=== PATIENT | male | born 1955 | race Caucasian/White ===

== ENCOUNTER 2019-05-18 02:09 | Inpatient (IN) ==
[2019-05-18 02:34] LABS: ABG Base Excess -5 mEq/L (-2 to 3); ABG HCO3 17 mEq/L (21-27); ABG Oxygen Saturation 94 % (95-98); ABG PCO2 23 mmHg (35-45); ABG PH 7.48 pH Units (7.32-7.45); ABG PO2 63 mmHg (85-104); ABG TCO2 18 mEq/L (20-26)
[2019-05-18] MEDS ORDERED: 0.9 % Sodium Chloride 1,000 ML IVC ONE (02:43)
--- NOTE | 2019-05-18 02:43 | Emergency Department Note ---
Disposition Clinical Impression: Delirium due to general medical condition, Hyponatremia Disposition: Admitted As Inpatient Condition: Serious Referrals: NONE,PCP [Primary Care Provider] - Forms: ED Satisfaction Letter Time of Disposition: 06:07 Altered Mental Status HPI - General Chief Complaint: ED Altered Mental Status Stated Complaint: AMS Time Seen by Provider: 05/18/19 02:26 Source: patient, family, EMS Mode of arrival: EMS Limitations: altered mental status Nursing Notes Reviewed: Yes Vital Signs Reviewed: Yes - History of Present Illness HPI Narrative: 64-year-old male past medical history of dementia and lymphoma on aspirin and Plavix presenting for one day of altered mental status. and grandson at bedside state that patient was recently diagnosed with lymphoma in the chest and abdomen, has been experiencing 3 week of gradually progressive and worsening lower back pain as well as alternation of mental status. Patient today has appeared to be hallucinating, has had altered mental status with lethargy, was noted to be hypoxic to 85% on room air at home. EMS states that nonrebreather mask brought patient up to 100% on oxygen he became alert and oriented that time. Upon presentation to the ED the patient is alert to person only, he is only minimal cooperative to history of present illness/review of systems questioning. Patient admits to lower back pain but states that he has no other concerns or complaints at this time. Specifically patient says he has no headache, chest pain, abdominal pain nausea or vomiting. Concern for intracranial pathology specifically in the setting of recently diagnosed lymphoma we will obtain CT scan of the head as well as ED altered mental status workup to search for infectious etiology versus intracranial or cardiopulmonary pathology. MD complaint: altered mental status Onset (ago): week(s) Timing confirmed by: spouse Consistency of Symptoms: waxing and waning Associated symptoms: Reports: denies other symptoms - Related Data Home Medications Medication Instructions Recorded Confirmed Amlodipine Besylate 10 mg PO DAILY 05/18/19 05/18/19 Aspirin 81 mg PO DAILY 05/18/19 05/18/19 Atenolol [Tenormin] 50 mg PO DAILY 05/18/19 05/18/19 Atorvastatin [Lipitor] 20 mg PO HS 05/18/19 05/18/19 Benzonatate [Tessalon] 100 mg PO TID PRN 05/18/19 05/18/19 Cholecalciferol (Vitamin D3) 2,000 unit PO DAILY 05/18/19 05/18/19 [Vitamin D3] Clopidogrel [Plavix] 75 mg PO DAILY 05/18/19 05/18/19 Cyclobenzaprine [Flexeril] 10 mg PO HS 05/18/19 05/18/19 Lisinopril [Zestril] 40 mg PO BID 05/18/19 05/18/19 Pantoprazole Sodium [Protonix] 20 mg PO DAILY 05/18/19 05/18/19 Tamsulosin HCl [Flomax] 0.4 mg PO DAILY 05/18/19 05/18/19 Umeclidinium Brm/Vilanterol Tr 1 each IH DAILY 05/18/19 05/18/19 [Anoro Ellipta 62.5-25 Mcg INH] cloNIDine HCl [CloNIDine HCl] 0.1 mg PO BID 05/18/19 05/18/19 Allergies Allergy/AdvReac Type Severity Reaction Status Date / Time No Known Allergies Allergy Verified 05/18/19 02:24 Review of Systems: As Per HPI Limitations: ROS unobtainable due to patients medical condition Past Medical History - Past Medical History Medical history: Reports: COPD, hypertension Psychiatric history: Reports: no psych history - Social History Smoking Status: Former smoker Alcohol use: Reports: heavy Drug use: Reports: none Physical Exam Constitutional: Patient has altered mental status, speech is otherwise fluid there are no lateralizing deficits. Neuro: GCS 15, no overt focal neurological deficits Head: Atraumatic, normocephalic Eyes: Pupils equal, round and reactive to light, no scleral icterus, no conjunctival injection Neck: Trachea midline without deviation. Anterior neck is supple without swelling. *Chest: Symmetric chest wall rise *Heart: Cardiac rhythm and rate are regular with S1 and S2 , no S3 or S4 appreciated, no murmurs, gallops, rubs, or clicks. *Lungs: Lungs are clear to auscultation bilaterally, without accessory muscle use or prolonged expiratory phase. No wheezes, rhonchi or stridor appreciated. Abdomen: Abdomen is flat, soft to palpation, normal bowel sounds. No abdominal bruit auscultated. Non-distended, non-rigid, no organomegaly, no ascites appreciated. No pulsatile mass, no tenderness or guarding to palpation in all four quadrants, no rebound Extremities: Normal capillary refill without evidence of pedal edema, joint swelling or erythema. Pulses/motor/sensory intact in all 4 extremities. Psychiatric exam: Patient has altered mental status of unknown origin Integumentary: warm, dry, intact, normal color. No rash, cyanosis, diaphoresis, erythema, or pallor - General Limitations: altered mental status General appearance: alert, obtunded Course Course Narrative: ED altered mental status workup to include CT scan of the head and abdomen, lactic acid, blood cultures, chest x-ray EKG, troponin Treatments: IV fluids final for the management of patient's discomfort and pain. - Reevaluation(s) Reevaluation #1: Patient's sodium was measured at 104 Patient is received 1 L of normal saline We will start maintenance fluid at 125 mL per hour Patient's last sodium check was 116 and march this year. Patient takes 1 g sodium chloride twice a day at home. We will recheck sodium stat Reevaluation #2: Spoke with Dr. Pierce from nephrology regarding correction factor for hyponatremia. Dr. Pierce currently recommends 3% hypertonic saline at a rate of 20 mL/h with every 2 hours sodium checks for a total correction of 6 points in 24 hours. Order repeated back to Dr. Pierce with a closed loop communication was confirmed as accurate. Nephrology consulted and is following Orders were be placed as noted above with care initiated here in the ED. Time: 04:43 Vital Signs Temperature 98.5 F 05/18/19 02:24 Pulse Rate 86 05/18/19 02:24 Respiratory Rate 25 05/18/19 02:24 Blood Pressure 134/68 05/18/19 02:24 O2 Sat by Pulse Oximetry 95 05/18/19 02:24 Temperature 98.5 F 05/18/19 02:24 Pulse Rate 89 05/18/19 06:04 Respiratory Rate 18 05/18/19 06:04 Blood Pressure 131/93 05/18/19 06:04 O2 Sat by Pulse Oximetry 93 05/18/19 06:04 Oxygen Delivery Oxygen Delivery Room Air Altered Mental Status - MDM Narrative Medical decision making narrative: Patient laboratories significant for hyponatremia, imaging concerning for interstitial edema. No significant pathology on EKG evaluation. Patient will be admitted to hospital medicine service further evaluation and management of hyponatremia. Patient's family at bedside verbalized understanding and agreement with this plan. Elabor accepting admission. Patient is hemodynamically stable time of admission. - Lab Data Lab results reviewed: Yes I reviewed the patient's lab results. Result diagrams: 05/18/19 03:50 05/18/19 02:42 Lab Results 05/18/19 05/18/19 05/18/19 Range/Units 02:25 02:42 02:42 WBC (4.3-11.1) K/mcL RBC (4.19-5.50) M/mcL Hgb (12.9-16.9) g/dL Hct (37.5-50.1) % MCV (83.0-100.0) fL MCH (28.0-33.3) pg MCHC (31.6-35.5) g/dL RDW (11.5-14.5) % Plt Count (140-400) K/mcL MPV (9.4-12.4) fL Immature Gran % (0-4) % Seg Neutrophils % % Lymphocytes % % Monocytes % % Eosinophils % % Basophils % % Neutrophils # (1.6-8.9) K/mcL Lymphocytes # (0.6-4.6) K/mcL Monocytes # (0.0-1.3) K/mcL Eosinophils # (0.0-0.6) K/mcL Basophils # (0.0-0.2) K/mcL Immature Plt Fraction (1.1-6.1) % PT 13.3 H (9.4-12.1) Seconds INR 1.2 APTT 31.5 (26.0-36.0) Seconds ABG pH 7.48 H (7.32-7.45) pH Units ABG pCO2 23 L (35-45) mmHg ABG pO2 63 L (85-104) mmHg ABG HCO3 17 L (21-27) mEq/L ABG Total CO2 18 L (20-26) mEq/L ABG O2 Saturation 94 L (95-98) % ABG Base Excess -5 L (-2 to 3) mEq/L O2 Delivery Device Room Air Sodium 104 L* (136-145) mEq/L Potassium 4.3 (3.5-5.1) mEq/L Chloride 73 L (98-107) mEq/L Carbon Dioxide 21 L (23-29) mEq/L BUN 6 L (8-23) mg/dL Creatinine 0.48 L (0.70-1.30) mg/dL Est GFR ( Amer) > 60 (> 60) Est GFR (Non-Af Amer) > 60 (> 60) BUN/Creatinine Ratio 13 (6-26) Glucose 90 (70-105) mg/dL Calculated Osmolality 215 L (280-300) Lactic Acid (0.5-2.2) mmol/L Calcium 9.7 (8.6-10.3) mg/dL Total Bilirubin 1.6 H (0.3-1.0) mg/dL Direct Bilirubin 0.6 H (0.0-0.2) mg/dL Indirect Bilirubin 1.0 (0.0-1.2) mg/dL AST 48 H (13-39) Units/L ALT 40 (7-52) Units/L Alkaline Phosphatase 137 H (34-104) Units/L Ammonia (16-53) mcmol/L Troponin I < 0.03 (< 0.04) ng/mL Serum Total Protein 6.2 L (6.4-8.9) g/dL Albumin 3.5 (3.5-5.7) g/dL Globulin 2.7 (2.4-3.5) g/dL Albumin/Globulin Ratio 1.3 (1.1-2.2) TSH 1.435 (0.340-5.600) mcIU/mL Ethyl Alcohol < 10 (Less than 10) mg/dL 05/18/19 05/18/19 05/18/19 Range/Units 02:42 02:42 03:50 WBC 8.8 (4.3-11.1) K/mcL RBC 4.10 L (4.19-5.50) M/mcL Hgb 12.8 L (12.9-16.9) g/dL Hct 34.5 L (37.5-50.1) % MCV 84.1 D (83.0-100.0) fL MCH 31.2 (28.0-33.3) pg MCHC 37.1 H (31.6-35.5) g/dL RDW 12.3 (11.5-14.5) % Plt Count 325 (140-400) K/mcL MPV 9.1 L (9.4-12.4) fL Immature Gran % 1.0 (0-4) % Seg Neutrophils % 89.0 % Lymphocytes % 5.0 % Monocytes % 4.5 % Eosinophils % 0.3 % Basophils % 0.2 % Neutrophils # 7.8 (1.6-8.9) K/mcL Lymphocytes # 0.4 L (0.6-4.6) K/mcL Monocytes # 0.4 (0.0-1.3) K/mcL Eosinophils # 0.0 (0.0-0.6) K/mcL Basophils # 0.0 (0.0-0.2) K/mcL Immature Plt Fraction 4.5 (1.1-6.1) % PT (9.4-12.1) Seconds INR APTT (26.0-36.0) Seconds ABG pH (7.32-7.45) pH Units ABG pCO2 (35-45) mmHg ABG pO2 (85-104) mmHg ABG HCO3 (21-27) mEq/L ABG Total CO2 (20-26) mEq/L ABG O2 Saturation (95-98) % ABG Base Excess (-2 to 3) mEq/L O2 Delivery Device Sodium (136-145) mEq/L Potassium (3.5-5.1) mEq/L Chloride (98-107) mEq/L Carbon Dioxide (23-29) mEq/L BUN (8-23) mg/dL Creatinine (0.70-1.30) mg/dL Est GFR ( Amer) (> 60) Est GFR (Non-Af Amer) (> 60) BUN/Creatinine Ratio (6-26) Glucose (70-105) mg/dL Calculated Osmolality (280-300) Lactic Acid 1.0 (0.5-2.2) mmol/L Calcium (8.6-10.3) mg/dL Total Bilirubin (0.3-1.0) mg/dL Direct Bilirubin (0.0-0.2) mg/dL Indirect Bilirubin (0.0-1.2) mg/dL AST (13-39) Units/L ALT (7-52) Units/L Alkaline Phosphatase (34-104) Units/L Ammonia 27 (16-53) mcmol/L Troponin I (< 0.04) ng/mL Serum Total Protein (6.4-8.9) g/dL Albumin (3.5-5.7) g/dL Globulin (2.4-3.5) g/dL Albumin/Globulin Ratio (1.1-2.2) TSH (0.340-5.600) mcIU/mL Ethyl Alcohol (Less than 10) mg/dL - Radiology Data Radiology results reviewed: Yes I reviewed the patient's radiology results. Chest X-Ray 05/18/19 02:44 IMPRESSION: Interstitial edema and small pleural effusions. This could reflect sequela of congestive heart failure. D/ / Brett Treadwell MD / Brett Treadwell MD Interpreting Provider: Brett Treadwell MD Head CT 05/18/19 02:44 IMPRESSION: No acute intracranial abnormality. D/ / Sonny Vidal MD / Sonny Vidal MD Interpreting Provider: Sonny Vidal MD - EKG Data EKG attestation: Yes I reviewed and interpreted this EKG. EKG results narrative: Patient EKG shows sinus rhythm with a first-degree AV block heart rate of 87 bpm, AK interval of 220 ms, QR hoahaoism of 121 ms, QT/QTc interval 370/455 ms respectively. There are no significant ST segment elevations, depressions, pathologic Q waves, there is no abnormal T-wave inversion that is noted in lead 3 which appears isolated to this lead, there are no signs of acute ischemic change. At this time there is no prior EKG available for comparison at this time. TPA Checklist - LKW: 3-4.5 hrs Add. Warnings/Precautions Patient/family understanding: The patient/family members have been counseled and understood the risk, benefit, and alternatives of treatment.
[2019-05-18] MEDS ORDERED: *HR* FentaNYL (PF) 100 MCG/2 ML VIAL IVP ONE (03:09)
[2019-05-18 03:14] LABS: INR 1.2; Prothrombin Time 13.3 Seconds (9.4-12.1)
[2019-05-18 03:16] LABS: Activated Partial Thrombo Time 31.5 Seconds (26.0-36.0)
[2019-05-18 03:32] LABS: Troponin I < 0.03 ng/mL (< 0.04)
[2019-05-18 03:57] LABS: Basophils % 0.2 %; Eosinophils % 0.3 %; Hematocrit 34.5 % (37.5-50.1); Hemoglobin 12.8 g/dL (12.9-16.9); Immature Platelets 4.5 % (1.1-6.1); Lymphocytes # 0.4 K/mcL (0.6-4.6); Mean Corpuscular Hemoglobin 31.2 pg (28.0-33.3); Mean Corpuscular Volume 84.1 fL (83.0-100.0); Mean Platelet Volume 9.1 fL (9.4-12.4); Monocytes # 0.4 K/mcL (0.0-1.3); Monocytes % 4.5 %; Neutrophils # 7.8 K/mcL (1.6-8.9); Platelet Count 325 K/mcL (140-400); Red Cell Distribution Width 12.3 % (11.5-14.5); White Blood Count 8.8 K/mcL (4.3-11.1)
[2019-05-18 03:58] LABS: Mean Corpuscular HGB Conc 37.1 g/dL (31.6-35.5)
[2019-05-18 04:07] LABS: Thyroid Stimulating Hormone 1.435 mcIU/mL (0.340-5.600)
[2019-05-18 04:09] LABS: Alanine Aminotransferase 40 Units/L (7-52); Albumin 3.5 g/dL (3.5-5.7); Albumin/Globulin Ratio 1.3 (1.1-2.2); Alkaline Phosphatase 137 Units/L (34-104); Aspartate Amino Transferase 48 Units/L (13-39); BUN/Creatinine Ratio 13 (6-26); Bilirubin,Direct 0.6 mg/dL (0.0-0.2); Bilirubin,Total 1.6 mg/dL (0.3-1.0); Blood Urea Nitrogen 6 mg/dL (8-23); Calcium 9.7 mg/dL (8.6-10.3); Carbon Dioxide 21 mEq/L (23-29); Chloride 73 mEq/L (98-107); Ethanol < 10 mg/dL (Less than 10); Globulin 2.7 g/dL (2.4-3.5); Glucose 90 mg/dL (70-105); Osmolality,Calculated 215 (280-300); Potassium 4.3 mEq/L (3.5-5.1); Sodium 104 mEq/L (136-145); Total Protein 6.2 g/dL (6.4-8.9); eGFR For African Americans > 60 (> 60); eGFR For Non-African Americans > 60 (> 60)
[2019-05-18] MEDS ORDERED: 0.9 % Sodium Chloride 1,000 ML IVC SCH (04:15)
[2019-05-18] MEDS ORDERED: *HR* 3% Sodium Chloride 500 ML IV.SOLN IVC STA (04:37)
--- NOTE | 2019-05-18 05:27 | Emergency Department Note ---
Disposition Clinical Impression: Delirium due to general medical condition, Hyponatremia Disposition: Admitted As Inpatient Condition: Serious Referrals: NONE,PCP [Primary Care Provider] - Forms: ED Satisfaction Letter Time of Disposition: 06:07 General Adult HPI - General Chief complaint: ED Altered Mental Status Stated complaint: AMS Time Seen by Provider: 05/18/19 02:26 Source: patient, family, EMS Mode of arrival: EMS Limitations: altered mental status Nursing Notes Reviewed: Yes Vital Signs Reviewed: Yes - History of Present Illness Pain Scale: 0 - Related Data Home Medications Medication Instructions Recorded Confirmed Amlodipine Besylate 10 mg PO DAILY 05/18/19 05/18/19 Aspirin 81 mg PO DAILY 05/18/19 05/18/19 Atenolol [Tenormin] 50 mg PO DAILY 05/18/19 05/18/19 Atorvastatin [Lipitor] 20 mg PO HS 05/18/19 05/18/19 Benzonatate [Tessalon] 100 mg PO TID PRN 05/18/19 05/18/19 Cholecalciferol (Vitamin D3) 2,000 unit PO DAILY 05/18/19 05/18/19 [Vitamin D3] Clopidogrel [Plavix] 75 mg PO DAILY 05/18/19 05/18/19 Cyclobenzaprine [Flexeril] 10 mg PO HS 05/18/19 05/18/19 Lisinopril [Zestril] 40 mg PO BID 05/18/19 05/18/19 Pantoprazole Sodium [Protonix] 20 mg PO DAILY 05/18/19 05/18/19 Tamsulosin HCl [Flomax] 0.4 mg PO DAILY 05/18/19 05/18/19 Umeclidinium Brm/Vilanterol Tr 1 each IH DAILY 05/18/19 05/18/19 [Anoro Ellipta 62.5-25 Mcg INH] cloNIDine HCl [CloNIDine HCl] 0.1 mg PO BID 05/18/19 05/18/19 Allergies Allergy/AdvReac Type Severity Reaction Status Date / Time No Known Allergies Allergy Verified 05/18/19 02:24 Past Medical History - Past Medical History Medical history: Reports: COPD, hypertension Psychiatric history: Reports: no psych history - Social History Smoking Status: Former smoker Alcohol use: Reports: heavy Drug use: Reports: none Physical Exam - General Limitations: altered mental status General appearance: alert, obtunded Course Vital Signs Temperature 98.5 F 05/18/19 02:24 Pulse Rate 86 05/18/19 02:24 Respiratory Rate 25 05/18/19 02:24 Blood Pressure 134/68 05/18/19 02:24 O2 Sat by Pulse Oximetry 95 05/18/19 02:24 Temperature 98.5 F 05/18/19 02:24 Pulse Rate 89 05/18/19 06:04 Respiratory Rate 18 05/18/19 06:04 Blood Pressure 131/93 05/18/19 06:04 O2 Sat by Pulse Oximetry 93 05/18/19 06:04 Oxygen Delivery Oxygen Delivery Room Air Medical Decision Making - Medical Records Medical records reviewed: Yes I reviewed the patient's medical records. - Lab Data Lab results reviewed: Yes I reviewed the patient's lab results. Result diagrams: 05/18/19 03:50 05/18/19 02:42 Lab Results 05/18/19 05/18/19 05/18/19 Range/Units 02:25 02:42 02:42 WBC (4.3-11.1) K/mcL RBC (4.19-5.50) M/mcL Hgb (12.9-16.9) g/dL Hct (37.5-50.1) % MCV (83.0-100.0) fL MCH (28.0-33.3) pg MCHC (31.6-35.5) g/dL RDW (11.5-14.5) % Plt Count (140-400) K/mcL MPV (9.4-12.4) fL Immature Gran % (0-4) % Seg Neutrophils % % Lymphocytes % % Monocytes % % Eosinophils % % Basophils % % Neutrophils # (1.6-8.9) K/mcL Lymphocytes # (0.6-4.6) K/mcL Monocytes # (0.0-1.3) K/mcL Eosinophils # (0.0-0.6) K/mcL Basophils # (0.0-0.2) K/mcL Immature Plt Fraction (1.1-6.1) % PT 13.3 H (9.4-12.1) Seconds INR 1.2 APTT 31.5 (26.0-36.0) Seconds ABG pH 7.48 H (7.32-7.45) pH Units ABG pCO2 23 L (35-45) mmHg ABG pO2 63 L (85-104) mmHg ABG HCO3 17 L (21-27) mEq/L ABG Total CO2 18 L (20-26) mEq/L ABG O2 Saturation 94 L (95-98) % ABG Base Excess -5 L (-2 to 3) mEq/L O2 Delivery Device Room Air Sodium 104 L* (136-145) mEq/L Potassium 4.3 (3.5-5.1) mEq/L Chloride 73 L (98-107) mEq/L Carbon Dioxide 21 L (23-29) mEq/L BUN 6 L (8-23) mg/dL Creatinine 0.48 L (0.70-1.30) mg/dL Est GFR ( Amer) > 60 (> 60) Est GFR (Non-Af Amer) > 60 (> 60) BUN/Creatinine Ratio 13 (6-26) Glucose 90 (70-105) mg/dL Calculated Osmolality 215 L (280-300) Lactic Acid (0.5-2.2) mmol/L Calcium 9.7 (8.6-10.3) mg/dL Total Bilirubin 1.6 H (0.3-1.0) mg/dL Direct Bilirubin 0.6 H (0.0-0.2) mg/dL Indirect Bilirubin 1.0 (0.0-1.2) mg/dL AST 48 H (13-39) Units/L ALT 40 (7-52) Units/L Alkaline Phosphatase 137 H (34-104) Units/L Ammonia (16-53) mcmol/L Troponin I < 0.03 (< 0.04) ng/mL Serum Total Protein 6.2 L (6.4-8.9) g/dL Albumin 3.5 (3.5-5.7) g/dL Globulin 2.7 (2.4-3.5) g/dL Albumin/Globulin Ratio 1.3 (1.1-2.2) TSH 1.435 (0.340-5.600) mcIU/mL Ethyl Alcohol < 10 (Less than 10) mg/dL 05/18/19 05/18/19 05/18/19 Range/Units 02:42 02:42 03:50 WBC 8.8 (4.3-11.1) K/mcL RBC 4.10 L (4.19-5.50) M/mcL Hgb 12.8 L (12.9-16.9) g/dL Hct 34.5 L (37.5-50.1) % MCV 84.1 D (83.0-100.0) fL MCH 31.2 (28.0-33.3) pg MCHC 37.1 H (31.6-35.5) g/dL RDW 12.3 (11.5-14.5) % Plt Count 325 (140-400) K/mcL MPV 9.1 L (9.4-12.4) fL Immature Gran % 1.0 (0-4) % Seg Neutrophils % 89.0 % Lymphocytes % 5.0 % Monocytes % 4.5 % Eosinophils % 0.3 % Basophils % 0.2 % Neutrophils # 7.8 (1.6-8.9) K/mcL Lymphocytes # 0.4 L (0.6-4.6) K/mcL Monocytes # 0.4 (0.0-1.3) K/mcL Eosinophils # 0.0 (0.0-0.6) K/mcL Basophils # 0.0 (0.0-0.2) K/mcL Immature Plt Fraction 4.5 (1.1-6.1) % PT (9.4-12.1) Seconds INR APTT (26.0-36.0) Seconds ABG pH (7.32-7.45) pH Units ABG pCO2 (35-45) mmHg ABG pO2 (85-104) mmHg ABG HCO3 (21-27) mEq/L ABG Total CO2 (20-26) mEq/L ABG O2 Saturation (95-98) % ABG Base Excess (-2 to 3) mEq/L O2 Delivery Device Sodium (136-145) mEq/L Potassium (3.5-5.1) mEq/L Chloride (98-107) mEq/L Carbon Dioxide (23-29) mEq/L BUN (8-23) mg/dL Creatinine (0.70-1.30) mg/dL Est GFR ( Amer) (> 60) Est GFR (Non-Af Amer) (> 60) BUN/Creatinine Ratio (6-26) Glucose (70-105) mg/dL Calculated Osmolality (280-300) Lactic Acid 1.0 (0.5-2.2) mmol/L Calcium (8.6-10.3) mg/dL Total Bilirubin (0.3-1.0) mg/dL Direct Bilirubin (0.0-0.2) mg/dL Indirect Bilirubin (0.0-1.2) mg/dL AST (13-39) Units/L ALT (7-52) Units/L Alkaline Phosphatase (34-104) Units/L Ammonia 27 (16-53) mcmol/L Troponin I (< 0.04) ng/mL Serum Total Protein (6.4-8.9) g/dL Albumin (3.5-5.7) g/dL Globulin (2.4-3.5) g/dL Albumin/Globulin Ratio (1.1-2.2) TSH (0.340-5.600) mcIU/mL Ethyl Alcohol (Less than 10) mg/dL - Radiology Data Radiology results reviewed: Yes I reviewed the patient's radiology results. Chest X-Ray 05/18/19 02:44 IMPRESSION: Interstitial edema and small pleural effusions. This could reflect sequela of congestive heart failure. D/ / Brett Treadwell MD / Brett Treadwell MD Interpreting Provider: Brett Treadwell MD Head CT 05/18/19 02:44 IMPRESSION: No acute intracranial abnormality. D/ / Sonny Vidal MD / Sonny Vidal MD Interpreting Provider: Sonny Vidal MD - EKG Data EKG #1 EKG attestation: Yes I reviewed and interpreted this EKG. EKG results narrative: EKG shows a normal sinus rhythm with ventricular rate of 87. No significant ST segment elevation or depression. No arrhythmia or ectopy. Critical Care Time Critical Care Time: Yes Total Critical Care Time: 45 Attestation: Critical care performed: Time is exclusive of separately billable procedures. Time includes: direct patient care, patient reassessment, coordination of patient care, interpretation of data (laboratory data, radiology data, and respiratory data), review of patient's medical records, medical consultation and documentation of patient care. Procedures included in critical care time: Procedures excluded from critical care time: Attestation Statement - Attestation Attestation: I, Geoff Mo MD, personally evaluated this patient and discussed their management with the resident physician. I reviewed the resident's note and agree with the documented findings, medical decision making, and plan of care. I reviewed the residents documentation and agree with the residents assessment and plan of care. I have personally had face to face time with the patient. I personally supervised and was present for the davidson/critical portions of the following procedures completed by the resident: EKG interpretation. 64-year-old male presented to the emergency department by EMS for complaint of altered mental status. Family reports that patient has had increasing confusion over the past 2-3 days. No fever. Family reports that patient has been complaining of lower back pain which started about 2-3 weeks ago. Apparently during workup for this lower back pain he was found to have lymphoma. Patient has an indwelling Mercedes catheter and family concerned he may have a UTI. EMS reports when they picked him up he was alert but was confused and was picking at his shirt in route. His oxygen saturation was initially 85%. They placed him on oxygen and he improved to the mid 90s with some improvement in his mental status however then in route to the hospital he fell asleep and when he woke up he was back to the baseline confusion despite having oxygen. On arrival here the patient seems drowsy but responds to verbal stimuli. He is slow to respond but answers questions appropriately. He denies any pain other than his lower back pain. He denies chest pain or shortness of breath. No cough or fever. On examination patient is a well-developed well-nourished elderly male in no acute distress. He is drowsy and slow to respond does respond to verbal stimuli. He is oriented 3. There is no cyanosis or diaphoresis. Breath sounds are clear and equal bilaterally. Heart regular rate and rhythm. Abdomen soft and nontender with normal bowel sounds. No gross focal neurological deficits. EKG shows a normal sinus rhythm with ventricular rate of 87. No significant ST segment elevation or depression. No arrhythmia or ectopy. Head CT negative. Chest x-ray shows some mild interstitial edema. Labs reviewed. Patient found to have marked hyponatremia with a sodium of 104. Dr. El discussed with the [employer] service supervisor, Dr. Pierce, and she did recommend going ahead and starting patient on 3% saline at 20 mL per hour. The hospitalist, Dr. Latif, was consulted and accepted admission of the patient.
[2019-05-18] MEDS ORDERED: Naloxone 0.4 MG/ML INJ IVP PRN (06:18)
[2019-05-18] MEDS ORDERED: Acetaminophen 325 MG TABLET PO PRN (06:18)
--- NOTE | 2019-05-18 06:27 | Internal Med History&Physical ---
<Endy Dobson - Last Filed: 05/18/19 06:21> Date of Encounter: 05/18/19 Time of Encounter: 06:21 Internal Medicine - H&P: HPI Chief complaint: Confusion Admitted From: Emergency Dept Plans for Post Hospital Care: Home History of present illness: Mr. Perez is a 64 year old male with a past medical history of coronary artery disease, dementia, hypertension, BPH, and recently diagnosed metastatic lymphoma who presented to the emergency department for increased confusion over baseline dementia. Per ED note family states the patient has been increasingly confused over the last 2-3 days. Family was not present when I saw the patient and the patient was not able to respond appropriately to questioning. CT of the head and was without acute intracranial abnormality, labs demonstrated profound hypo natremia of 104. Nephrology was consulted who recommended immediately starting hypertonic saline and admitting the patient to the ICU. Past Med Surg Social Fam HX - Past Medical History Medical history: COPD, hypertension Additional medical history: possilbe lymphoma, chronic low back pain, Psychiatric history: no psych history - Social History Smoking Status: Former smoker Alcohol use: heavy Drug use: none Internal Medicine - H&P: Meds Amlodipine Besylate 10 mg PO DAILY 05/18/19 [History] Aspirin 81 mg PO DAILY 05/18/19 [History] Atenolol [Tenormin] 50 mg PO DAILY 05/18/19 [History] Atorvastatin [Lipitor] 20 mg PO HS 05/18/19 [History] Benzonatate [Tessalon] 100 mg PO TID PRN 05/18/19 [History] Cholecalciferol (Vitamin D3) [Vitamin D3] 2,000 unit PO DAILY 05/18/19 [History] Clopidogrel [Plavix] 75 mg PO DAILY 05/18/19 [History] Cyclobenzaprine [Flexeril] 10 mg PO HS 05/18/19 [History] Lisinopril [Zestril] 40 mg PO BID 05/18/19 [History] Pantoprazole Sodium [Protonix] 20 mg PO DAILY 05/18/19 [History] Tamsulosin HCl [Flomax] 0.4 mg PO DAILY 05/18/19 [History] Umeclidinium Brm/Vilanterol Tr [Anoro Ellipta 62.5-25 Mcg INH] 1 each IH DAILY 05/18/19 [History] cloNIDine HCl [CloNIDine HCl] 0.1 mg PO BID 05/18/19 [History] Allergy/AdvReac Type Severity Reaction Status Date / Time No Known Allergies Allergy Verified 05/18/19 02:24 ROS unobtainable: due to mental status All Systems PM: A 10-system review of systems was performed and is negative for pertinent findings except as documented above in the HPI. - Constitutional Vitals: Temp Pulse Resp BP Pulse Ox 98.5 F 89 18 131/93 93 05/18/19 02:24 05/18/19 06:04 05/18/19 06:04 05/18/19 06:04 05/18/19 06:04 General appearance: Present: A&O X 0, no acute distress Exam: Somnolent, confused, does not answer questions appropriately, however does not appear in acute distress Unable to test cranial nerves however the patient does respond to painful stimuli and does not exhibit any focal deficits, moves all 4 extremities Pupils equal and reactive to light, extraocular movements intact Heart in regular rate and rhythm without murmur or gallop auscultated Lungs clear to auscultation bilaterally without adventitial noted Abdomen soft and nontender with normal bowel sounds noted 2+ pitting edema in bilateral lower extremities Skin warm and dry without rash, bruising, bleeding noted Internal Med - H&P Results - Labs CBC & Chem 7: 05/18/19 03:50 05/18/19 02:42 Labs: Short CBC 05/18/19 Range/Units 03:50 WBC 8.8 (4.3-11.1) K/mcL Hgb 12.8 L (12.9-16.9) g/dL Hct 34.5 L (37.5-50.1) % Plt Count 325 (140-400) K/mcL Neutrophils # 7.8 (1.6-8.9) K/mcL BMP 05/18/19 02:42 Sodium 104 L* Potassium 4.3 Chloride 73 L Carbon Dioxide 21 L BUN 6 L Creatinine 0.48 L Glucose 90 Calcium 9.7 Cardiac Enzymes 05/18/19 Range/Units 02:42 Troponin I < 0.03 (< 0.04) ng/mL Liver Function 05/18/19 Range/Units 02:42 Total Bilirubin 1.6 H (0.3-1.0) mg/dL Direct Bilirubin 0.6 H (0.0-0.2) mg/dL AST 48 H (13-39) Units/L ALT 40 (7-52) Units/L Alkaline Phosphatase 137 H (34-104) Units/L Albumin 3.5 (3.5-5.7) g/dL - ABG Interpretation ABG results: 05/18/19 02:25 ABG pH 7.48 H ABG pCO2 23 L ABG pO2 63 L ABG HCO3 17 L ABG Total CO2 18 L ABG O2 Saturation 94 L ABG Base Excess -5 L - Impressions ITS Impressions Chest X-Ray 05/18/19 02:44 IMPRESSION: Interstitial edema and small pleural effusions. This could reflect sequela of congestive heart failure. D/ / Brett Treadwell MD / Brett Treadwell MD Interpreting Provider: Brett Treadwell MD Head CT 05/18/19 02:44 IMPRESSION: No acute intracranial abnormality. D/ / Sonny Vidal MD / Sonny Vidal MD Interpreting Provider: Sonny Vidal MD - Assessment and Plan (1) Hyponatremia Current Visit: Yes Status: Acute Assessment and plan: Patient was found to have profound acute hyponatremia of 104 On review of records his sodium was as low as 116 one month ago On review of home medications the patient is prescribed 2 g of oral sodium chloride per day According to family the patient gets sick when he takes sodium and so he has not been taking it Original etiology for hyponatremia may be related to adrenal hyperplasia seen on PET scan related to metastatic lymphoma the patient was recently diagnosed with Patient is currently on hypertonic saline at 20 mL/h per nephrology recommendations with every 2 hours sodium checks We will continue this protocol with strict timely sodium checks and sodium should not increase more than 6 mEq over 24 hours Original sodium of 104 was taken at 02:42 on 05/18, repeat sodium at 05:53 on 05/18 is 106 (2) Encephalopathy Current Visit: Yes Status: Acute Assessment and plan: Patient apparently has baseline dementia, family states he is currently more confused than baseline This likely reflects a metabolic encephalopathy secondary to hyponatremia, CT head negative Labs also demonstrate respiratory alkalosis which could be contributing to encephalopathy We will attempt to correct sodium and continue to monitor neurological status (3) Lymphoma Current Visit: Yes Status: Acute Assessment and plan: Per family the patient was recently diagnosed with lymphoma in the last several weeks On review of PET scan results and the records the patient appears to have metastatic disease that is widespread including involvement in the left renal gland which could relate to his current hyponatremia Consider hematology/oncology consultation Qualifiers: Lymphoma type: unspecified type Lymphoma site: multiple regions Qualified Code(s): C85.98 - Non-Hodgkin lymphoma, unspecified, lymph nodes of multiple sites (4) Adrenal abnormality Current Visit: Yes Status: Acute Assessment and plan: Hypermetabolic left adrenal gland seen on PET scan, please see PET scan report for full details (5) Dementia Current Visit: Yes Status: Chronic Assessment and plan: Patient has history of baseline dementia, family was not present at time of interview to confirm baseline mental status Qualifiers: Dementia type: unspecified type Dementia behavioral disturbance: with behavioral disturbance Qualified Code(s): F03.91 - Unspecified dementia with behavioral disturbance (6) DVT prophylaxis Current Visit: Yes Status: Acute Assessment and plan: Subcutaneous heparin (7) Pleural effusion Current Visit: Yes Status: Acute Assessment and plan: Interstitial edema and small bilateral pleural effusion seen on chest x-ray Patient is saturating and ventilating appropriately on room air He does not have history of documented heart failure Continue to monitor - Time Spent With Patient Total time spent is greater than 50% in coordination of care (as documented) at patient's floor/unit and/or counseling patient: <Coco Ordonez - Last Filed: 05/18/19 07:21> Date of Encounter: 05/18/19 Internal Medicine - H&P: HPI History of present illness: Mr. Perez is a 64 year old male All Systems PM: A 10-system review of systems was performed and is negative for pertinent findings except as documented above in the HPI. - Constitutional Vitals: Temp Pulse Resp BP Pulse Ox 97.7 F 86 23 135/77 99 05/18/19 06:45 05/18/19 06:45 05/18/19 06:45 05/18/19 06:45 05/18/19 06:45 Internal Med - H&P Results - Labs CBC & Chem 7: 05/18/19 03:50 05/18/19 05:53 Labs: Short CBC 05/18/19 Range/Units 03:50 WBC 8.8 (4.3-11.1) K/mcL Hgb 12.8 L (12.9-16.9) g/dL Hct 34.5 L (37.5-50.1) % Plt Count 325 (140-400) K/mcL Neutrophils # 7.8 (1.6-8.9) K/mcL BMP 05/18/19 05/18/19 02:42 05:53 Sodium 104 L* 106 L* Potassium 4.3 Chloride 73 L Carbon Dioxide 21 L BUN 6 L Creatinine 0.48 L Glucose 90 Calcium 9.7 Cardiac Enzymes 05/18/19 Range/Units 02:42 Troponin I < 0.03 (< 0.04) ng/mL Liver Function 05/18/19 Range/Units 02:42 Total Bilirubin 1.6 H (0.3-1.0) mg/dL Direct Bilirubin 0.6 H (0.0-0.2) mg/dL AST 48 H (13-39) Units/L ALT 40 (7-52) Units/L Alkaline Phosphatase 137 H (34-104) Units/L Albumin 3.5 (3.5-5.7) g/dL - ABG Interpretation ABG results: 05/18/19 02:25 ABG pH 7.48 H ABG pCO2 23 L ABG pO2 63 L ABG HCO3 17 L ABG Total CO2 18 L ABG O2 Saturation 94 L ABG Base Excess -5 L - Impressions ITS Impressions Chest X-Ray 05/18/19 02:44 IMPRESSION: Interstitial edema and small pleural effusions. This could reflect sequela of congestive heart failure. D/ / Brett Treadwell MD / Brett Treadwell MD Interpreting Provider: Brett Treadwell MD Head CT 05/18/19 02:44 IMPRESSION: No acute intracranial abnormality. D/ / Sonny Vidal MD / Sonny Vidal MD Interpreting Provider: Sonny Vidal MD - Time Spent With Patient Total time spent is greater than 50% in coordination of care (as documented) at patient's floor/unit and/or counseling patient: - Attending Attestation I performed a history and physical examination of the patient and discussed his management with the resident. I reviewed the resident's note and agree with the assessment and plan of care. In short patient is a 64-year-old male with a past medical history of dementia and recent diagnosis of metastatic lymphoma who presented to the ED with family due to increased confusion and altered mentation for the past several weeks associated with hallucinations and lethargy. Patient was found to have a serum sodium level of 104. Calculated serum osmolality was 215. TSH within normal limits. CT scan of the head showed no acute intracranial normalities. Of note, patient received 1 L bolus of normal saline prior to findings of initial laboratory workup. Per report, Patient is reportedly on 1 g of sodium tablets twice a day but has not been taking them lately. Most recent serum sodium level in our records was 116 in March of this year. On my assessment patient appeared euvolemic, was alert oriented 1 displaying nonsensical speech. Cardiac and lung examination within normal limits. No lower extremity edema noted. No focal deficits appreciated though no patient would not consistently follow commands. Case was discussed with nephrology, Dr. Pierce, who recommended initiating 3% hypertonic saline at a rate of 20 mL's per hour with sodium checks every 2 hours with goal of total correction of 6meq in 24 hours. We will admit to the ICU for close monitoring of sodium correction in the setting of severe symptomatic hyponatremia. We will obtain serum cortisol, urine sodium, urine osmolality studies to further assess etiology of patient's hypoosmolar hyponatremia. Consult to nephrology and critical care. Over 30 minutes of critical care time was spent in the management of this patient.
--- NOTE | 2019-05-18 08:00 | Pulmonology History & Physical ---
<Garrett Ayala W - Last Filed: 05/18/19 12:05> Date of Encounter: 05/18/19 History of Present Illness HPI: Mr. Perez is a 64 year old male Medications and Allergies Amlodipine Besylate 10 mg PO DAILY 05/18/19 [History] Aspirin 81 mg PO DAILY 05/18/19 [History] Atenolol [Tenormin] 50 mg PO DAILY 05/18/19 [History] Atorvastatin [Lipitor] 20 mg PO HS 05/18/19 [History] Benzonatate [Tessalon] 100 mg PO TID PRN 05/18/19 [History] Cholecalciferol (Vitamin D3) [Vitamin D3] 2,000 unit PO DAILY 05/18/19 [History] Clopidogrel [Plavix] 75 mg PO DAILY 05/18/19 [History] Cyclobenzaprine [Flexeril] 10 mg PO HS 05/18/19 [History] Lisinopril [Zestril] 40 mg PO BID 05/18/19 [History] Pantoprazole Sodium [Protonix] 20 mg PO DAILY 05/18/19 [History] Tamsulosin HCl [Flomax] 0.4 mg PO DAILY 05/18/19 [History] Umeclidinium Brm/Vilanterol Tr [Anoro Ellipta 62.5-25 Mcg INH] 1 each IH DAILY 05/18/19 [History] cloNIDine HCl [CloNIDine HCl] 0.1 mg PO BID 05/18/19 [History] Allergy/AdvReac Type Severity Reaction Status Date / Time No Known Allergies Allergy Verified 05/18/19 02:24 All Systems: The remainder of the systems were reviewed and are negative Physical Examination Vital Signs: Vital Signs, Last 4 Hours Pulse Resp BP Pulse Ox 05/18/19 11:00 87 20 110/71 96 05/18/19 10:00 89 22 109/69 95 05/18/19 09:00 88 22 133/75 97 05/18/19 08:10 88 94 Results - Laboratory Findings CBC and BMP: 05/18/19 03:50 05/18/19 10:35 ABG ABG pH 7.48 pH Units (7.32-7.45) H 05/18/19 02:25 ABG pCO2 23 mmHg (35-45) L 05/18/19 02:25 ABG pO2 63 mmHg (85-104) L 05/18/19 02:25 ABG O2 Saturation 94 % (95-98) L 05/18/19 02:25 PT/INR, D-dimer PT 13.3 Seconds (9.4-12.1) H 05/18/19 02:42 Abnormal lab findings: Abnormal lab results RBC 4.10 M/mcL (4.19-5.50) L 05/18/19 03:50 Hgb 12.8 g/dL (12.9-16.9) L 05/18/19 03:50 Hct 34.5 % (37.5-50.1) L 05/18/19 03:50 MCHC 37.1 g/dL (31.6-35.5) H 05/18/19 03:50 MPV 9.1 fL (9.4-12.4) L 05/18/19 03:50 0.4 K/mcL (0.6-4.6) L 05/18/19 03:50 PT 13.3 Seconds (9.4-12.1) H 05/18/19 02:42 ABG pH 7.48 pH Units (7.32-7.45) H 05/18/19 02:25 ABG pCO2 23 mmHg (35-45) L 05/18/19 02:25 ABG pO2 63 mmHg (85-104) L 05/18/19 02:25 ABG HCO3 17 mEq/L (21-27) L 05/18/19 02:25 ABG Total CO2 18 mEq/L (20-26) L 05/18/19 02:25 ABG O2 Saturation 94 % (95-98) L 05/18/19 02:25 ABG Base Excess -5 mEq/L (-2 to 3) L 05/18/19 02:25 Sodium 107 mEq/L (136-145) L* 05/18/19 10:35 Chloride 73 mEq/L (98-107) L 05/18/19 02:42 Carbon Dioxide 21 mEq/L (23-29) L 05/18/19 02:42 BUN 6 mg/dL (8-23) L 05/18/19 02:42 0.48 mg/dL (0.70-1.30) L 05/18/19 02:42 215 (280-300) L 05/18/19 02:42 1.6 mg/dL (0.3-1.0) H 05/18/19 02:42 0.6 mg/dL (0.0-0.2) H 05/18/19 02:42 AST 48 Units/L (13-39) H 05/18/19 02:42 137 Units/L (34-104) H 05/18/19 02:42 6.2 g/dL (6.4-8.9) L 05/18/19 02:42 Ur Specific Boswell 1.008 (1.010-1.025) L 05/18/19 08:13 40 mg/dL (Negative) H 05/18/19 08:13 Small (Negative) H 05/18/19 08:13 Ur Leukocyte Esterase Small (Negative) H 05/18/19 08:13 15-30 per hpf (0-3) H 05/18/19 08:13 3-5 per hpf (0-3) H 05/18/19 08:13 Ur Culture Indicated? YES (NO) A 05/18/19 08:13 - Attending Attestation I examined this patient and my medical decision-making was reviewed with the Resident Physician. I agree with the documented findings, disposition and treatment plan as described except to the extent set forth below. We independently had [id number] contact with the patient I spent 36min of Critical Care time with this patient. It involved decision making of high complexity to assess, manipulate, and support vital organ system failure and/or to prevent further life threatening deterioration of the patient's condition. The time involved in the performance of separately reportable procedures was not counted toward critical care time. Patient seen and examined at bedside Labs, radiology, chart personally reviewed. Management was reviewed during multidisciplinary critical care rounds. BOOTH MANAGER: Acute encephalopathy likely secondary to metabolic derangements (hyponatremia) however patient is an alcoholic and withdrawal cannot be fully excluded as he is having of visual hallucinations. Cont CIWA protocol. Admister MV and THiamine. No seizure activity has been noted Pulm: Acceptable oxygenation Cards: Pressure monitored and stable GI: Distended abdomen without peritoneal signs Nutrition: Nothing by mouth for now Renal: Life threatening hyponatremia requiring rapid administration of hyperto ilir saline and emergent CVC catheter was placed for this reason today. 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 May be a candidate for VAPTAN administration as sodium increases UOP Monitored, Cont to Trend sCr and monitor Electrolytes. ID: No clear evidence of infection we will culture patient is here high risk for infection given the indwelling catheter and check pro-calcitonin have low t hreshold for initiation of antimicrobials Heme/Onc: DVT prophylaxis given; ears to have diffuse metastatic process questionable malignancy will likely need oncology evaluation within the next 24 hours; check uric acid would need to continue to monitor for tumor lysis Endo: Glucose Monitored; adrenal axis grossly appears functional Integ/MSK: Skin Care per routine ICU Nursing Protocol to prevent ulcers. Lines: All lines examined without evidence of infection : Dispo: Monitor in ICU for critical illness CODE: Currently Full Code. Overall prognosis appears to be quite poor would likely benefit from palliative care consultation <Rogelio Dawson - Last Filed: 05/18/19 12:27> Date of Encounter: 05/18/19 Time of Encounter: 08:34 Assessment and Plan (1) Hyponatremia Current visit: Yes Status: Acute - Presented with AMS with a sodium level of 104 - Etiology is unknown; possibly secondary to metastatic lymphoma, SIADH, beer potomania - Previous sodium level on 04/23 was found to be low at 116 - Patient was prescribed 2 g of PO sodium chloride per day during a previous visit; has not been taking as prescribed according to family - In the ED, patient was given 2 L of normal saline was started on 3% normal joy ine; Na+ levels so far have been 104, 106 - Patient has been transferred to the ICU for further monitoring - R-sided femoral CVC placed this morning for the administration of 3% normal saline Plan: - Nephrology consulted; would appreciate further recommendations - 3% NS at 20 mL/h per the recommendations of nephrology - Q2H sodium Checks - Continue seizure precautions - Urine studies including osmolality, sodium, and uric acid ordered (2) Alcohol abuse Current visit: Yes Status: Acute - Patient has a known history of alcohol use - This may be a contributing factor to his hyponatremia and visual hallucinations - Due to his mental status, he is unable to tell me when his last drink was Plan: - NPO for the time being - RANDI protocol and seizure precautions in place - Electrolyte protocol in place; will replace electrolytes as needed - Thiamine, multivitamin, folic acid daily (3) Encephalopathy Current visit: Yes Status: Acute - Patient has a baseline dementia - Per family on arrival, patient was more confused than baseline - Likely secondary to hyponatremia - Plan as above (4) Lymphoma Current visit: Yes Status: Acute Patient was recently diagnosed with lymphoma in the last several weeks PET scan on 05/08 demonstrated the following findings: - Focal hypermetabolism at pancreatic body - Significant hypermetabolic adenopathy within left lower neck, superior mediastinum, retroperitoneum, mesentery - Focal hypermetabolism of the left brachiocephalic vein - Multiple hypermetabolic lesions and vertebral body lesions - Hypermetabolic left adrenal gland, suspicious for malignancy Qualifiers: Lymphoma type: unspecified type Lymphoma site: multiple regions Qualified Code(s): C85.98 - Non-Hodgkin lymphoma, unspecified, lymph nodes of multiple sites (5) Pulmonary edema Current visit: Yes Status: Acute - CXR demonstrated pulmonary vascular congestion; new finding compared to previous x-ray - Currently requiring 2 L of O2 via nasal cannula - No previous history of CHF - We will order BNP Qualifiers: Qualified Code(s): J81.0 - Acute pulmonary edema (6) Dementia Current visit: Yes Status: Acute - Per chart review, patient has a history of dementia at baseline - We will speak with family once they arrive to determine patients baseline mental status Qualifiers: Qualified Code(s): F03.90 - Unspecified dementia without behavioral disturbance (7) Adrenal abnormality Current visit: Yes Status: Acute - Hypermetabolic L adrenal gland, as seen on PET scan (8) DVT prophylaxis Current visit: Yes Status: Acute - Heparin SQ History of Present Illness HPI: Mr. Perez is a 64 year old male with a PMH of CAD on ASA and Plavix, HTN, dementia, BPH, and metastatic lymphoma who presented to [facility] ED on 05/18/19 for increased confusion over baseline dementia. He has accompanied by his and grandson, who reported that patient had been experiencing a 3 week history of progressive low back pain and altered mental status. He was recently diagnosed with lymphoma and the chest and abdomen. Patient appeared to be hallucinating and was lethargic. He was found to be hypoxic at 85% on room air at home. When EMS arrived, he was placed on a nonrebreather mask, which brought his O2 sat up to 100%. On arrival to the emergency department, he was only alert to person. His main complaint was low back pain. Upon arrival to the ED, vital signs were significant for tachypnea at 25/m. All other vital signs were within normal limits. Labs were significant for a low sodium at 104, and elevated direct bilirubin 0.6, AST 48, alkaline phosphatase 137, and a low hemoglobin at 12.8. CXR demonstrated the presence of interstitial edema and small pleural effusions, possibly representing sequela of congestive heart failure. CT scan of the head showed no acute intracranial abnormality. He was given 2L normal saline. Patient was started on 3% normal saline. Q2H sodium checks were ordered. Nephrology was consulted from the emergency department. Patient then transferred to the ICU for further management and monitoring. Patient was seen and examined at bedside; he appears confused and does not answer any questions. He will make eye contact, but does not give any response to any questions. He appeared to wince in pain several times during examination, possibly due to back spasms. Family will be coming in later in the afternoon. Of note, patient has a Mercedes catheter that was placed approximately one week ago for BPH and has not been exchanged since. A urinalysis with reflex culture and microscopy has been ordered. Past Med Surg Social Fam HX - Past Medical History Medical history: COPD, hypertension Additional medical history: possilbe lymphoma, chronic low back pain, Psychiatric history: no psych history - Social History Smoking Status: Former smoker Alcohol use: heavy Drug use: none ROS unobtainable: due to mental status All Systems: The remainder of the systems were reviewed and are negative Physical Examination Vital Signs: Vital Signs, Last 4 Hours Temp Pulse Resp BP Pulse Ox 05/18/19 06:45 97.7 F 86 23 135/77 99 05/18/19 06:04 89 18 131/93 93 05/18/19 05:23 91 19 119/84 90 05/18/19 04:37 91 25 128/75 94 General: A&O X0, nonconversant Head: atraumatic, normocephalic Eye: PERRL, EOMI, conjuntiva pink, sclera anicteric Neck: Supple, trachea midline; No lymphadenopathy Respiratory: CTAB. No accessory muscle use, wheezes, rales, or rhonchi Cardiovascular: RRR, +S1, +S2; no murmurs, rubs, gallops Abdomen: Soft, nontender Extremities: +2 pitting edema in b/l LEs Psychiatric: Normal affect, normal mood Skin: Dry, intact Results - Laboratory Findings CBC and BMP: 05/18/19 03:50 05/18/19 10:35 ABG ABG pH 7.48 pH Units (7.32-7.45) H 05/18/19 02:25 ABG pCO2 23 mmHg (35-45) L 05/18/19 02:25 ABG pO2 63 mmHg (85-104) L 05/18/19 02:25 ABG O2 Saturation 94 % (95-98) L 05/18/19 02:25 PT/INR, D-dimer PT 13.3 Seconds (9.4-12.1) H 05/18/19 02:42 Abnormal lab findings: Abnormal lab results RBC 4.10 M/mcL (4.19-5.50) L 05/18/19 03:50 Hgb 12.8 g/dL (12.9-16.9) L 05/18/19 03:50 Hct 34.5 % (37.5-50.1) L 05/18/19 03:50 MCHC 37.1 g/dL (31.6-35.5) H 05/18/19 03:50 MPV 9.1 fL (9.4-12.4) L 05/18/19 03:50 0.4 K/mcL (0.6-4.6) L 05/18/19 03:50 PT 13.3 Seconds (9.4-12.1) H 05/18/19 02:42 ABG pH 7.48 pH Units (7.32-7.45) H 05/18/19 02:25 ABG pCO2 23 mmHg (35-45) L 05/18/19 02:25 ABG pO2 63 mmHg (85-104) L 05/18/19 02:25 ABG HCO3 17 mEq/L (21-27) L 05/18/19 02:25 ABG Total CO2 18 mEq/L (20-26) L 05/18/19 02:25 ABG O2 Saturation 94 % (95-98) L 05/18/19 02:25 ABG Base Excess -5 mEq/L (-2 to 3) L 05/18/19 02:25 Sodium 106 mEq/L (136-145) L* 05/18/19 05:53 Chloride 73 mEq/L (98-107) L 05/18/19 02:42 Carbon Dioxide 21 mEq/L (23-29) L 05/18/19 02:42 BUN 6 mg/dL (8-23) L 05/18/19 02:42 0.48 mg/dL (0.70-1.30) L 05/18/19 02:42 215 (280-300) L 05/18/19 02:42 1.6 mg/dL (0.3-1.0) H 05/18/19 02:42 0.6 mg/dL (0.0-0.2) H 05/18/19 02:42 AST 48 Units/L (13-39) H 05/18/19 02:42 137 Units/L (34-104) H 05/18/19 02:42 6.2 g/dL (6.4-8.9) L 05/18/19 02:42
[2019-05-18 08:48] LABS: Amphetamine Screen,Urine Negative ng/mL (Cutoff=1000); Barbiturate Screen,Urine Negative ng/mL (Cutoff=200); Benzodiazepines Screen,Urine Negative ng/mL (Cutoff=300); Cannabinoid Screen,Urine Negative ng/mL (Cutoff = 50); Cocaine Screen,Urine Negative ng/mL (Cutoff= 300); Opiate Screen,Urine Negative ng/mL (Cutoff=300); Phencyclidine Screen,Urine Negative ng/mL (Cutoff=25)
[2019-05-18 08:50] LABS: Bilirubin,Urine Negative (Negative); Blood,Urine Small (Negative); Clarity,Urine Clear (Clear); Color,Urine Yellow (Yellow); Glucose,Urine (UA) Normal (Normal); Ketones,Urine 40 mg/dL (Negative); Leukocyte Esterase,Urine Small (Negative); Nitrite,Urine Negative (Negative); Protein,Urine Negative (Neg-Trace); Specific Gravity,Urine 1.008 (1.010-1.025); Urobilinogen,Urine Normal (Normal)
[2019-05-18 08:52] LABS: Bacteria,Urine None Seen per hpf (None-Few); Hyaline Casts,Urine None Seen per lpf (None-Few); RBC,Urine 15-30 per hpf (0-3); Squamous Epithelial Cell,Urine Few per lpf (None-Few)
[2019-05-18 10:21] LABS: Magnesium 1.6 mg/dL (1.6-2.6)
--- NOTE | 2019-05-18 11:14 | Nephrology Consult Note ---
Date of Encounter: 05/18/19 Time of Encounter: 11:00 Assessment and Plan (1) Hyponatremia Current Visit: Yes Status: Acute Symptomatic acute on chronic hyponatremia in the setting of recent malignancy, significant smoking history and EtOH abuse likely multifactorail with SIADH and beer potomania high on the list Urine osm inappropriately high (mild) with high sodium Will check uric acid, LDH and serum osmolality (measured) levels Cortisol level, TSH WNL Low BUN and SCr alludes to poor nutrition overall which is consistent with EtOH history Continue hypertonic saline at 20cc/hr as lastest sodium noted at 107 with goal of 8 point increase in 24hrs interval Continue serial 2hr sodium checks EtOH withdrawal protocol per primary team Seizure prevention protocol per primary team Prognosis guarded (2) Delirium due to general medical condition Current Visit: Yes Status: Acute Likely due to severe hyponatremia (3) Lymphoma Current Visit: Yes Status: Acute Oncology consult per primary team Qualifiers: Lymphoma type: unspecified type Lymphoma site: multiple regions Qualified Code(s): C85.98 - Non-Hodgkin lymphoma, unspecified, lymph nodes of multiple sites (4) Pleural effusion Current Visit: Yes Status: Acute Per primary History of Present Illness - Reason for Consult Consult date: 05/18/19 hyponatremia Requesting physician: Dominick Marin - History of Present Illness 64 y o male with PMH of CAD, COPD, HTN, BPH 60 pack smoking history quit years ago, EtOH abuse, dementia and recently diagnosed lymphoma admitted with a few d ays of altered mental status and noted with sodium of 104. Prior sodium noted at 116 as of last month with salt tabs 1gram bid prescribed but pt has been noncompliant with this. Pt seen and examined very disoriented with no family members present at bedside. Pt is a poor historian and per records, no diuretics noted. No N/V/D documented. Recent CT Chest this month showed multiple lung abnormalities and diffuse lymphadenopathy consistent with possible lymphoma. PET showed multiple hypermetabolic hepatic lesions, vertebral body lesions, L adrenal gland lesion, pancretaic body lesion and diffuse adenoopathy along with bilateral pleural effusions R>L. Pt received a liter of NS in the ED and was started on hypertonic saline after discussion with me at 20cc/hr. Past Med Surg Social Fam HX - Past Medical History Medical history: COPD, hypertension Additional medical history: possilbe lymphoma, chronic low back pain, Psychiatric history: no psych history - Social History Smoking Status: Former smoker Alcohol use: heavy Drug use: none Medications and Allergies Amlodipine Besylate 10 mg PO DAILY 05/18/19 [History] Aspirin 81 mg PO DAILY 05/18/19 [History] Atenolol [Tenormin] 100 mg PO DAILY 05/18/19 [History] Atorvastatin [Lipitor] 20 mg PO HS 05/18/19 [History] Cholecalciferol (Vitamin D3) [Vitamin D3] 2,000 unit PO DAILY 05/18/19 [History] Clopidogrel [Plavix] 75 mg PO DAILY 05/18/19 [History] Cyclobenzaprine [Flexeril] 10 mg PO HS 05/18/19 [History] Lisinopril [Zestril] 40 mg PO BID 05/18/19 [History] Pantoprazole Sodium [Protonix] 20 mg PO DAILY 05/18/19 [History] Sodium Chloride [Sodium Chloride Tab] 1 gm PO BID 05/18/19 [History] Tamsulosin HCl [Flomax] 0.4 mg PO DAILY 05/18/19 [History] Umeclidinium Brm/Vilanterol Tr [Anoro Ellipta 62.5-25 Mcg INH] 1 each IH DAILY 05/18/19 [History] cloNIDine HCl [CloNIDine HCl] 0.1 mg PO BID 05/18/19 [History] Allergy/AdvReac Type Severity Reaction Status Date / Time No Known Allergies Allergy Verified 05/18/19 02:24 Review of Systems ROS unobtainable: due to mental status Exam - Vital Signs Vital signs: Initial Vital Signs Temp Pulse Resp BP Pulse Ox 98.5 F 86 25 134/68 95 05/18/19 02:24 05/18/19 02:24 05/18/19 02:24 05/18/19 02:24 05/18/19 02:24 Vital Signs - Last 8 Hours Temp Pulse Resp BP Pulse Ox 05/18/19 11:00 87 20 110/71 96 05/18/19 10:00 89 22 109/69 95 05/18/19 09:00 88 22 133/75 97 05/18/19 08:10 88 94 05/18/19 08:00 97.9 F 86 22 124/80 94 05/18/19 06:45 97.7 F 86 23 135/77 99 05/18/19 06:04 89 18 131/93 93 05/18/19 05:23 91 19 119/84 90 05/18/19 04:37 91 25 128/75 94 Intake and Output 05/17/19 05/18/19 05/18/19 23:59 07:59 15:59 Intake Total 1000 / 1000 0 / 1000 Balance 1000 / 1000 0 / 1000 Intake: IV Fluids 1000 / 1000 0.9 % Sodium Chloride 1,000 ML 1000 / 1000 @ 999 mls/hr IVC .Q1H1M ONE Rx# :[id number] Oral 0 / 0 Other: Weight 82.1 kg Blood Glucose* 77 96 Patient Weight 05/18/19 23:59 Weight 82.1 kg - General Appearance General appearance: well-developed, well-nourished EENT: ATNC, mucous membranes moist Neck: no JVD, supple Additional Comments: good areation ant bilat Cardiology: edema (LE bilat +1), normal S1, normal S2 Gastrointestinal: no tenderness, no guarding, distended (tympanic) Integumentary: warm and dry Neurologic: confused, disoriented Musculoskeletal: no deformities Psychiatric: cooperative Results - Lab Results 05/19/19 03:15 05/19/19 13:13 Most recent lab results 05/18/19 05/18/19 05/18/19 02:25 02:42 06:18 ABG pH 7.48 H ABG pCO2 23 L ABG pO2 63 L ABG HCO3 17 L ABG O2 Saturation 94 L Calcium 9.7 Magnesium Urine Sodium 73.4 05/18/19 08:29 ABG pH ABG pCO2 ABG pO2 ABG HCO3 ABG O2 Saturation Calcium Magnesium 1.6 Urine Sodium Consult Discharge Plan - Plan Referrals: NONE,PCP [Primary Care Provider] -
[2019-05-18] MEDS ORDERED: *HR* LORazepam 2 MG/ML VIAL IVP PRN (11:22)
[2019-05-18] MEDS ORDERED: Potassium Phosphate 44 MEQ in 0.9 % Sodium Chloride 250 ML IVPB PRN (11:31)
[2019-05-18] MEDS ORDERED: Calcium Gluconate 1gm/50mL 1 GM/50 ML BAG IVPB PRN (11:31)
[2019-05-18 12:06] LABS: VBG Ionized Calcium 1.18 mmol/L (1.15-1.35)
--- NOTE | 2019-05-18 12:08 | Procedure Note ---
<Rogelio Dawson - Last Filed: 05/18/19 12:08> Date of procedure: 05/18/19 Pre-op diagnosis: Hyponatremia Post-op diagnosis: same Procedure: Central Venous Catheter (CVC, Central Line) Placement Date: 05/18/19 Time: 10:45 Indication: Hemodynamic monitoring/Intravenous access Resident: Rogelio Dawson Attending: Dr. Garrett Ayala A time-out was completed verifying correct patient, procedure, site, positioning, and special equipment if applicable. The patient was placed in a dependent position appropriate for central line placement based on the vein to be cannulated. The patients right groin was prepped and draped in sterile fashion. 1% Lidocaine was used to anesthetize the surrounding skin area. A triple lumen catheter was introduced into the the common femoral vein using the Seldinger technique and under ultrasound guidance. The catheter was threaded smoothly over the guide wire and appropriate blood return was obtained. Each lumen of the catheter was evacuated of air and flushed with sterile saline. The catheter was then sutured in place to the skin and a sterile dressing applied. Perfusion to the extremity distal to the point of catheter insertion was checked and found to be adequate. Attending was present for the entire procedure. Estimated Blood Loss: 10ccs The patient tolerated the procedure well and there were no complications. Anesthesia: local Was there an food and beverage assistant present: Yes Veterinary Science Teacher: Susan Chakraborty Estimated blood loss (cc): 10 Specimen: none Pathology: none sent Condition: stable Disposition: ICU <Garrett Ayala - Last Filed: 05/18/19 15:47> - Attending Attestation I was present Supervised and assisted the entire procedure which was performed by Resident Dr Dawson
[2019-05-18 13:20] LABS: BUN/Creatinine Ratio 9 (6-26); Blood Urea Nitrogen 4 mg/dL (8-23); Calcium 8.4 mg/dL (8.6-10.3); Carbon Dioxide 20 mEq/L (23-29); Chloride 84 mEq/L (98-107); Glucose 86 mg/dL (70-105); Lactate Dehydrogenase 272 Units/L (140-271); Magnesium 1.6 mg/dL (1.6-2.6); Osmolality,Calculated 228 (280-300); Sodium 111 mEq/L (136-145); eGFR For African Americans > 60 (> 60); eGFR For Non-African Americans > 60 (> 60)
[2019-05-18 13:29] LABS: Red Blood Count 3.77 M/mcL (4.19-5.50)
[2019-05-18 14:26] LABS: Basophils % 0.2 %; Eosinophils % 0.4 %; Hematocrit 32.4 % (37.5-50.1); Hemoglobin 11.8 g/dL (12.9-16.9); Immature Platelets 5.4 % (1.1-6.1); Lymphocytes # 0.4 K/mcL (0.6-4.6); Lymphocytes % 4.6 %; Mean Corpuscular HGB Conc 36.4 g/dL (31.6-35.5); Mean Corpuscular Hemoglobin 31.3 pg (28.0-33.3); Mean Corpuscular Volume 85.9 fL (83.0-100.0); Mean Platelet Volume 9.3 fL (9.4-12.4); Monocytes # 0.4 K/mcL (0.0-1.3); Monocytes % 4.9 %; Neutrophils # 7.4 K/mcL (1.6-8.9); Platelet Count 283 K/mcL (140-400); Red Cell Distribution Width 12.7 % (11.5-14.5); Segmented Neutrophils % 88.9 %; White Blood Count 8.3 K/mcL (4.3-11.1)
[2019-05-18] MEDS: *HR* Heparin 5,000 UNIT/ML VIAL SQ SCH ×2 (15:30→21:49)
[2019-05-18] MEDS: Thiamine (B-1) 100 MG, Folic Acid 1 MG, MVI, adult with vitamin K 10 ML in 0.9 % Sodi... IVPB SCH (18:17)
[2019-05-18 19:25] LABS: Magnesium 1.9 mg/dL (1.6-2.6)
[2019-05-19 03:25] LABS: Basophils % 0.1 %; Eosinophils % 0.2 %; Hematocrit 32.3 % (37.5-50.1); Hemoglobin 11.7 g/dL (12.9-16.9); Immature Granulocytes % 0.6 % (0-4); Lymphocytes # 0.4 K/mcL (0.6-4.6); Mean Corpuscular HGB Conc 36.2 g/dL (31.6-35.5); Mean Corpuscular Hemoglobin 30.9 pg (28.0-33.3); Mean Corpuscular Volume 85.2 fL (83.0-100.0); Monocytes # 0.4 K/mcL (0.0-1.3); Monocytes % 4.6 %; Neutrophils # 7.8 K/mcL (1.6-8.9); Platelet Count 261 K/mcL (140-400); Red Blood Count 3.79 M/mcL (4.19-5.50); Red Cell Distribution Width 12.3 % (11.5-14.5); Segmented Neutrophils % 90.5 %; White Blood Count 8.7 K/mcL (4.3-11.1)
[2019-05-19 03:33] LABS: VBG Ionized Calcium 1.06 mmol/L (1.15-1.35)
[2019-05-19 03:52] LABS: BUN/Creatinine Ratio 8 (6-26); Blood Urea Nitrogen 4 mg/dL (8-23); Calcium 8.6 mg/dL (8.6-10.3); Carbon Dioxide 17 mEq/L (23-29); Chloride 81 mEq/L (98-107); Glucose 89 mg/dL (70-105); Magnesium 1.8 mg/dL (1.6-2.6); Osmolality,Calculated 228 (280-300); Phosphorous 3.5 mg/dL (2.7-4.5); Potassium 4.1 mEq/L (3.5-5.1); Sodium 111 mEq/L (136-145); eGFR For African Americans > 60 (> 60); eGFR For Non-African Americans > 60 (> 60)
[2019-05-19] MEDS: *HR* Heparin 5,000 UNIT/ML VIAL SQ SCH ×3 (05:46→21:56)
[2019-05-19] MEDS: *HR* LORazepam 2 MG/ML VIAL IVP PRN ×2 (08:13→19:22)
[2019-05-19] MEDS ORDERED: Thiamine (B-1) 100 MG TABLET PO SCH (09:00)
[2019-05-19] MEDS ORDERED: Folic Acid 1 MG TABLET PO SCH (09:00)
[2019-05-19] MEDS ORDERED: Vitamin B Complex/Vit C/Vit E 1 EACH TABLET PO SCH (09:00)
[2019-05-19] MEDS ORDERED: Aminoglycoside Consult 1 EACH MC ONE (10:04)
[2019-05-19 10:18] LABS: Phosphorous 3.4 mg/dL (2.7-4.5)
[2019-05-19 11:01] LABS: Albumin 3.2 g/dL (3.5-5.7); Albumin/Globulin Ratio 1.2 (1.1-2.2); Bilirubin,Direct 0.6 mg/dL (0.0-0.2); Bilirubin,Indirect 0.7 mg/dL (0.0-1.2); Bilirubin,Total 1.3 mg/dL (0.3-1.0); Globulin 2.6 g/dL (2.4-3.5); Total Protein 5.8 g/dL (6.4-8.9)
--- NOTE | 2019-05-19 11:25 | Pulmonology Progress Note ---
Date of Encounter: 05/19/19 Time of Encounter: 10:00 Assessment and Plan (1) Delirium due to general medical condition Current Visit: Yes Status: Acute Patient delivery was complicated by hyponatremia and alcohol withdrawal patient is on CIWA protocol gently correcting hyponatremia. (2) Hyponatremia Current Visit: Yes Status: Acute Patient is slowly getting corrected then the 3% hypertonic saline can correct one next 24 hours 16-18 mEq. Check sodium every 4 hours. Initial labs more pointing towards SIADH in the setting of malignancy. (3) Encephalopathy Current Visit: Yes Status: Acute Complicated by hyponatremia and alcohol withdrawal. (4) Lymphoma Current Visit: Yes Status: Acute We will consult oncology and patient is stable Qualifiers: Lymphoma type: unspecified type Lymphoma site: multiple regions Qualified Code(s): C85.98 - Non-Hodgkin lymphoma, unspecified, lymph nodes of multiple sites (5) Alcohol abuse Current Visit: Yes Status: Acute Patient is on ciwa protocol to replenish multivitamin and folic acid. 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 Objective PUL Vital signs: Last Vital Signs Temp 97.8 F 05/19/19 11:08 Pulse 100 05/19/19 10:00 Resp 16 05/19/19 10:00 BP 130/73 05/19/19 10:00 Pulse Ox 94 05/19/19 10:00 General appearance: no acute distress Eyes: nonicteric ENT: oropharynx moist Neck: supple Effort: normal Auscultation: bilateral: clear Cardiovascular: regular rate and rhythm Gastrointestinal: normoactive bowel sounds Integumentary: normal Extremities: no cyanosis Musculoskeletal: no deformities other (Patient is confused on and off 1) Results - Laboratory Findings CBC and BMP: 05/19/19 03:15 05/19/19 17:05 ABG ABG pH 7.48 pH Units (7.32-7.45) H 05/18/19 02:25 ABG pCO2 23 mmHg (35-45) L 05/18/19 02:25 ABG pO2 63 mmHg (85-104) L 05/18/19 02:25 ABG O2 Saturation 94 % (95-98) L 05/18/19 02:25 PT/INR, D-dimer PT 13.3 Seconds (9.4-12.1) H 05/18/19 02:42 Abnormal lab findings: Abnormal lab results RBC 3.79 M/mcL (4.19-5.50) L 05/19/19 03:15 Hgb 11.7 g/dL (12.9-16.9) L 05/19/19 03:15 Hct 32.3 % (37.5-50.1) L 05/19/19 03:15 MCHC 36.2 g/dL (31.6-35.5) H 05/19/19 03:15 MPV 9.0 fL (9.4-12.4) L 05/19/19 03:15 0.4 K/mcL (0.6-4.6) L 05/19/19 03:15 PT 13.3 Seconds (9.4-12.1) H 05/18/19 02:42 ABG pH 7.48 pH Units (7.32-7.45) H 05/18/19 02:25 ABG pCO2 23 mmHg (35-45) L 05/18/19 02:25 ABG pO2 63 mmHg (85-104) L 05/18/19 02:25 ABG HCO3 17 mEq/L (21-27) L 05/18/19 02:25 ABG Total CO2 18 mEq/L (20-26) L 05/18/19 02:25 ABG O2 Saturation 94 % (95-98) L 05/18/19 02:25 ABG Base Excess -5 mEq/L (-2 to 3) L 05/18/19 02:25 Sodium 111 mEq/L (136-145) L* 05/19/19 09:40 Chloride 81 mEq/L (98-107) L 05/19/19 03:15 Carbon Dioxide 17 mEq/L (23-29) L 05/19/19 03:15 BUN 4 mg/dL (8-23) L 05/19/19 03:15 0.50 mg/dL (0.70-1.30) L 05/19/19 03:15 222 mOsm/kg (280-300) L 05/18/19 11:50 228 (280-300) L 05/19/19 03:15 2.0 mg/dL (2.3-7.6) L 05/18/19 12:38 Calcium 8.4 mg/dL (8.6-10.3) L 05/18/19 12:38 Venous Ioniz Calcium 1.06 mmol/L (1.15-1.35) L 05/19/19 03:30 1.3 mg/dL (0.3-1.0) H 05/19/19 09:40 0.6 mg/dL (0.0-0.2) H 05/19/19 09:40 AST 40 Units/L (13-39) H 05/19/19 09:40 124 Units/L (34-104) H 05/19/19 09:40 272 Units/L (140-271) H 05/18/19 12:38 B-Natriuretic Peptide 358 pg/mL (Less than 100) H 05/19/19 03:15 5.8 g/dL (6.4-8.9) L 05/19/19 09:40 3.2 g/dL (3.5-5.7) L 05/19/19 09:40 0.36 ng/mL (0.00-0.15) H 05/18/19 11:50 Ur Specific [place] 1.008 (1.010-1.025) L 05/18/19 08:13 40 mg/dL (Negative) H 05/18/19 08:13 Small (Negative) H 05/18/19 08:13 Ur Leukocyte Esterase Small (Negative) H 05/18/19 08:13 15-30 per hpf (0-3) H 05/18/19 08:13 3-5 per hpf (0-3) H 05/18/19 08:13 Ur Culture Indicated? YES (NO) A 05/18/19 08:13 - Microbiology Findings Microbiology Findings: Microbiology, Last 48 Hours 05/18/19 08:13 Urine Culture - Preliminary Urine,[place] Culture is incubating. 05/18/19 03:50 Blood Culture - Preliminary Peripheral Venipuncture Culture is incubating and being continuously monitored for growth. Final report to follow. 05/18/19 03:50 Blood Culture - Preliminary Peripheral Venipuncture Culture is incubating and being continuously monitored for growth. Final report to follow. - Clinical Findings Intake & Output: Intake & Output 05/18/19 05/19/19 05/19/19 23:59 07:59 15:59 Intake Total 104 / 1104 561.2 / 805.2 244 / 805.2 Output Total 475 / 475 400 / 500 100 / 500 Balance -371 / 629 161.2 / 305.2 144 / 305.2 Weight 78.9 kg Consult Discharge Plan - Plan Referrals: NONE,PCP [Primary Care Provider] -
[2019-05-19 12:38] LABS: BUN/Creatinine Ratio 7 (6-26); Blood Urea Nitrogen 3 mg/dL (8-23); Calcium 8.8 mg/dL (8.6-10.3); Carbon Dioxide 19 mEq/L (23-29); Chloride 81 mEq/L (98-107); Glucose 90 mg/dL (70-105); Osmolality,Calculated 232 (280-300); Potassium 4.1 mEq/L (3.5-5.1); Sodium 113 mEq/L (136-145); eGFR For African Americans > 60 (> 60); eGFR For Non-African Americans > 60 (> 60)
--- NOTE | 2019-05-19 12:53 | Electrocardiograph Report ---
[address] [address] Test Date: 2019-05-18 Pat Name: Vikram Perez Department: EXAM4 Room: [facility] Gender: M Glassworker: : 1955 Requested By: Dominick El Order Number: [id number] Reading MD: Rodolfo Dia Measurements Intervals [place] Rate: 87 P: 60 CO: 220 QRS: 64 QRSD: 121 T: 13 QT: 378 QTc: 455 Interpretive Statements Sinus rhythm with 1st degree AVB Nonspecific intraventricular conduction delay Nonspecific ST-T abnormalities Electronically Signed On 05-19-2019 12:51:46 EDT by Rodolfo Dia
[2019-05-19] MEDS: Thiamine (B-1) 100 MG, Folic Acid 1 MG, MVI, adult with vitamin K 10 ML in 0.9 % Sodi... IVPB SCH (17:05)
--- NOTE | 2019-05-19 17:29 | Nephrology Progress Note ---
Date of Encounter: 05/19/19 Time of Encounter: 12:00 - Assessment and Plan (1) Hyponatremia Current Visit: Yes Status: Acute Sodium noted at 111, an appropriate correction the first 24hrs Will increase hypertonic saline to 20cc/hr and continue serial sodium check with goal of 6-8 point increase in the next 24hrs 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, may require tolvaptan once sodium above 120, will monitor for now (2) Delirium due to general medical condition Current Visit: Yes Status: Acute Likely due to severe hyponatremia EtOH withdrawal precautions advised (3) Lymphoma Current Visit: Yes Status: Acute Oncology consult per primary team Qualifiers: Lymphoma type: unspecified type Lymphoma site: multiple regions Qualified Code(s): C85.98 - Non-Hodgkin lymphoma, unspecified, lymph nodes of multiple sites (4) Pleural effusion Current Visit: Yes Status: Acute Per primary Subjective Interval history: Pt seen and examined resting comfortably with a sitter who reports bout of agitation earlier improved after ativan dose. Hypertonic saline now at 10cc/hr with sodium currently at 111. Objective - Vital Signs Vital signs: Vital Signs Temp Pulse Resp BP Pulse Ox 05/19/19 17:00 108 18 138/84 95 05/19/19 16:00 111 18 137/82 95 05/19/19 15:11 98.2 F 05/19/19 15:00 112 05/19/19 12:00 108 16 131/77 98 05/19/19 11:08 97.8 F 05/19/19 11:00 108 05/19/19 10:00 100 16 130/73 94 05/19/19 09:00 101 18 120/75 95 05/19/19 08:00 102 20 137/92 94 05/19/19 07:09 97.8 F 05/19/19 07:00 112 20 123/74 93 05/19/19 06:00 101 22 130/71 96 05/19/19 05:00 108 23 123/76 94 05/19/19 04:00 98.0 F 106 21 115/74 95 05/19/19 03:00 99 19 121/63 100 05/19/19 02:00 99 26 124/82 100 05/19/19 01:00 101 18 116/74 100 05/19/19 00:00 94 18 114/71 96 05/18/19 23:00 98 F 96 21 109/72 91 05/18/19 22:00 93 21 122/73 97 05/18/19 21:00 94 18 111/79 96 05/18/19 20:00 95 22 100/69 94 05/18/19 19:00 95 23 108/68 96 05/18/19 18:55 98.0 F 05/18/19 18:00 91 22 107/72 97 Intake and Output 05/19/19 05/19/19 05/19/19 07:59 15:59 23:59 Intake Total 561.2 / 879.2 318 / 879.2 Output Total 400 / 750 350 / 750 Balance 161.2 / 129.2 -32 / 129.2 Intake: IV Fluids 561.2 / 879.2 318 / 879.2 3% Sodium Chloride 500 ML @ 10 214 / 214 mls/hr IVC .Q24H [facility] Rx#: [id number] Calcium Gluconate 1gm/50mL 1 gm 50 / 50 In 50 ml @ 50 mls/hr IVPB Q6HR PRN Rx#:[id number] Magnesium Sulfate 2 GM In 0.9 % 104 / 104 Sodium Chloride 100 ML @ 52 mls/hr IVPB Q6H [facility]N Rx#: [id number] Vitamin B-1 100 MG Folvite 1 MG 511.2 / 511.2 M.v.i. Adult 10 ml In 0.9 % Sodium Chloride 500 ML @ 85.2 mls/hr IVPB DAILY@1800 [facility] Rx#: [id number] Oral 0 / 0 Output: Catheter 400 / 750 350 / 750 Other: Weight 78.9 kg Patient Weight 05/19/19 23:59 Weight 78.9 kg - General Appearance General appearance: Present: chronically ill (NAD) EENT: Present: ATNC, mucous membranes moist Neck: Present: no JVD, supple Additional Comments: good areation ant bilat Cardiology: Present: normal S1, normal S2 Gastrointestinal: Present: no tenderness, no guarding Integumentary: Present: warm and dry Neurologic: Present: confused, disoriented Musculoskeletal: Present: no deformities Psychiatric: Present: cooperative - Lab 05/19/19 03:15 05/19/19 13:13 Most recent lab results 05/19/19 05/19/19 09:40 11:30 Calcium 8.8 Phosphorus 3.4 Consult Discharge Plan - Plan Referrals: NONE,PCP [Primary Care Provider] -
[2019-05-19] MEDS: Folic Acid 1 MG TABLET PO SCH (19:21)
[2019-05-20 01:26] LABS: VBG Ionized Calcium 1.17 mmol/L (1.15-1.35)
[2019-05-20 02:02] LABS: BUN/Creatinine Ratio 8 (6-26); Blood Urea Nitrogen 3 mg/dL (8-23); Calcium 8.5 mg/dL (8.6-10.3); Carbon Dioxide 19 mEq/L (23-29); Chloride 86 mEq/L (98-107); Glucose 93 mg/dL (70-105); Osmolality,Calculated 236 (280-300); Potassium 3.9 mEq/L (3.5-5.1); Sodium 115 mEq/L (136-145); eGFR For African Americans > 60 (> 60); eGFR For Non-African Americans > 60 (> 60)
[2019-05-20] MEDS: *HR* Heparin 5,000 UNIT/ML VIAL SQ SCH ×3 (04:57→21:16)
[2019-05-20 05:11] LABS: Basophils % 0.3 %; Eosinophils % 0.3 %; Hematocrit 33.3 % (37.5-50.1); Hemoglobin 11.8 g/dL (12.9-16.9); Immature Granulocytes % 0.6 % (0-4); Lymphocytes # 0.3 K/mcL (0.6-4.6); Lymphocytes % 4.8 %; Mean Corpuscular HGB Conc 35.4 g/dL (31.6-35.5); Mean Corpuscular Hemoglobin 30.9 pg (28.0-33.3); Mean Corpuscular Volume 87.2 fL (83.0-100.0); Mean Platelet Volume 8.9 fL (9.4-12.4); Monocytes # 0.4 K/mcL (0.0-1.3); Monocytes % 5.2 %; Platelet Count 232 K/mcL (140-400); Red Blood Count 3.82 M/mcL (4.19-5.50); Red Cell Distribution Width 12.6 % (11.5-14.5); Segmented Neutrophils % 88.8 %; White Blood Count 6.7 K/mcL (4.3-11.1)
[2019-05-20 05:34] LABS: BUN/Creatinine Ratio 8 (6-26); Blood Urea Nitrogen 3 mg/dL (8-23); Calcium 8.8 mg/dL (8.6-10.3); Carbon Dioxide 20 mEq/L (23-29); Chloride 85 mEq/L (98-107); Glucose 90 mg/dL (70-105); Osmolality,Calculated 238 (280-300); Potassium 3.9 mEq/L (3.5-5.1); Sodium 116 mEq/L (136-145); eGFR For African Americans > 60 (> 60); eGFR For Non-African Americans > 60 (> 60)
--- NOTE | 2019-05-20 06:53 | Pulmonology Progress Note ---
Date of Encounter: 05/20/19 Time of Encounter: 06:50 Assessment and Plan (1) Delirium due to general medical condition Current Visit: Yes Status: Acute Patient delivery was complicated by hyponatremia and alcohol withdrawal patient is on CIWA protocol gently correcting hyponatremia. Also patient condition is complicated by urinary tract infection (2) Hyponatremia Current Visit: Yes Status: Acute Patient is slowly getting corrected then the 3% hypertonic saline can correct one next 24 hours 16-18 mEq. Check sodium every 4 hours. Initial labs more pointing towards SIADH in the setting of malignancy. 05/20 . Hypertonic saline to be stopped if he corrects [id number] mEq over 48 hours. (3) Encephalopathy Current Visit: Yes Status: Acute Complicated by hyponatremia and alcohol withdrawal, also complicated by enterococcus UTI (4) Lymphoma Current Visit: Yes Status: Acute We will consult oncology and patient is stable Qualifiers: Lymphoma type: unspecified type Lymphoma site: multiple regions Qualified Code(s): C85.98 - Non-Hodgkin lymphoma, unspecified, lymph nodes of multiple sites (5) Alcohol abuse Current Visit: Yes Status: Acute Patient is on ciwa protocol to replenish multivitamin and folic acid. (6) UTI (urinary tract infection) Current Visit: Yes Status: Acute Patient urine culture is growing enterococcus. 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 05/20 patient with encephalopathy complicated by hyponatremia who is recovering and also complicated by UTI causing this worsening encephalopathy and also complicated with withdrawal. Patient was very somnolent on my exam Objective PUL Vital signs: Last Vital Signs Temp 97.5 F L 05/19/19 23:58 Pulse 112 05/20/19 06:00 Resp 29 05/20/19 06:00 BP 113/74 05/20/19 06:00 Pulse Ox 94 05/20/19 06:00 General appearance: no acute distress, lethargic Eyes: nonicteric ENT: oropharynx moist Auscultation: bilateral: diminished breath sounds (In the bases) Cardiovascular: regular rate and rhythm Extremities: no cyanosis, no edema Musculoskeletal: no deformities unable to assess due to mental status Results - Laboratory Findings CBC and BMP: 05/20/19 04:58 05/20/19 17:26 ABG ABG pH 7.48 pH Units (7.32-7.45) H 05/18/19 02:25 ABG pCO2 23 mmHg (35-45) L 05/18/19 02:25 ABG pO2 63 mmHg (85-104) L 05/18/19 02:25 ABG O2 Saturation 94 % (95-98) L 05/18/19 02:25 PT/INR, D-dimer PT 13.3 Seconds (9.4-12.1) H 05/18/19 02:42 Abnormal lab findings: Abnormal lab results RBC 3.82 M/mcL (4.19-5.50) L 05/20/19 04:58 Hgb 11.8 g/dL (12.9-16.9) L 05/20/19 04:58 Hct 33.3 % (37.5-50.1) L 05/20/19 04:58 MCHC 36.2 g/dL (31.6-35.5) H 05/19/19 03:15 MPV 8.9 fL (9.4-12.4) L 05/20/19 04:58 0.3 K/mcL (0.6-4.6) L 05/20/19 04:58 PT 13.3 Seconds (9.4-12.1) H 05/18/19 02:42 ABG pH 7.48 pH Units (7.32-7.45) H 05/18/19 02:25 ABG pCO2 23 mmHg (35-45) L 05/18/19 02:25 ABG pO2 63 mmHg (85-104) L 05/18/19 02:25 ABG HCO3 17 mEq/L (21-27) L 05/18/19 02:25 ABG Total CO2 18 mEq/L (20-26) L 05/18/19 02:25 ABG O2 Saturation 94 % (95-98) L 05/18/19 02:25 ABG Base Excess -5 mEq/L (-2 to 3) L 05/18/19 02:25 Sodium 116 mEq/L (136-145) L* 05/20/19 04:55 Chloride 85 mEq/L (98-107) L 05/20/19 04:55 Carbon Dioxide 20 mEq/L (23-29) L 05/20/19 04:55 BUN 3 mg/dL (8-23) L 05/20/19 04:55 0.39 mg/dL (0.70-1.30) L 05/20/19 04:55 222 mOsm/kg (280-300) L 05/18/19 11:50 238 (280-300) L 05/20/19 04:55 2.0 mg/dL (2.3-7.6) L 05/18/19 12:38 Calcium 8.5 mg/dL (8.6-10.3) L 05/20/19 01:10 Venous Ioniz Calcium 1.06 mmol/L (1.15-1.35) L 05/19/19 03:30 1.3 mg/dL (0.3-1.0) H 05/19/19 09:40 0.6 mg/dL (0.0-0.2) H 05/19/19 09:40 AST 40 Units/L (13-39) H 05/19/19 09:40 124 Units/L (34-104) H 05/19/19 09:40 272 Units/L (140-271) H 05/18/19 12:38 B-Natriuretic Peptide 358 pg/mL (Less than 100) H 05/19/19 03:15 5.8 g/dL (6.4-8.9) L 05/19/19 09:40 3.2 g/dL (3.5-5.7) L 05/19/19 09:40 0.36 ng/mL (0.00-0.15) H 05/18/19 11:50 Ur Specific [place] 1.008 (1.010-1.025) L 05/18/19 08:13 40 mg/dL (Negative) H 05/18/19 08:13 Small (Negative) H 05/18/19 08:13 Ur Leukocyte Esterase Small (Negative) H 05/18/19 08:13 15-30 per hpf (0-3) H 05/18/19 08:13 3-5 per hpf (0-3) H 05/18/19 08:13 Ur Culture Indicated? YES (NO) A 05/18/19 08:13 - Microbiology Findings Microbiology Findings: Microbiology, Last 48 Hours 05/18/19 08:13 Urine Culture - Preliminary Urine,[place] Gram Positive Cocci 05/18/19 03:50 Blood Culture - Preliminary Peripheral Venipuncture Culture is incubating and being continuously monitored for growth. Final report to follow. 05/18/19 03:50 Blood Culture - Preliminary Peripheral Venipuncture Culture is incubating and being continuously monitored for growth. Final report to follow. - Clinical Findings Intake & Output: Intake & Output 05/19/19 05/19/19 05/20/19 15:59 23:59 07:59 Intake Total 318 / 1698.6 819.4 / 1698.6 412 / 412 Output Total 350 / 1475 500 / 1475 425 / 425 Balance -32 / 223.6 319.4 / 223.6 -13 / -13 Consult Discharge Plan - Plan Referrals: NONE,PCP [Primary Care Provider] -
[2019-05-20] MEDS: Folic Acid 1 MG TABLET PO SCH (07:58)
[2019-05-20] MEDS: Ampicillin/Sulbactam 3,000 MG in 0.9 % Sodium Chloride Mini Bag 100 ML IVPB SCH ×3 (12:00→22:58)
[2019-05-20] MEDS: Thiamine (B-1) 100 MG, Folic Acid 1 MG, MVI, adult with vitamin K 10 ML in 0.9 % Sodi... IVPB SCH (18:07)
[2019-05-20] MEDS: *HR* LORazepam 2 MG/ML VIAL IVP PRN (20:36)
--- NOTE | 2019-05-20 23:11 | Nephrology Progress Note ---
Date of Encounter: 05/20/19 Time of Encounter: 12:00 - Assessment and Plan (1) Hyponatremia Current Visit: Yes Status: Acute Sodium noted at 118, an appropriate correction the second 24hrs Will stop hypertonic saline once sodium reaches 120. continue serial sodium check with goal of 6-8 point increase in the next 24hrs 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, may require tolvaptan once sodium above 120, will monitor for now (2) Delirium due to general medical condition Current Visit: Yes Status: Acute (3) Lymphoma Current Visit: Yes Status: Acute Qualifiers: Lymphoma type: unspecified type Lymphoma site: multiple regions Qualified Code(s): C85.98 - Non-Hodgkin lymphoma, unspecified, lymph nodes of multiple sites (4) Pleural effusion Current Visit: Yes Status: Acute Subjective Principal diagnosis: Encephalopathy, hyponatremia Interval history: Pt seen and examined resting comfortably with a sitter at bedside. Objective - Vital Signs Vital signs: Vital Signs Temp Pulse Resp BP Pulse Ox 05/20/19 23:00 111 20 124/82 92 05/20/19 22:00 120 26 127/67 92 05/20/19 21:00 122 24 107/81 90 05/20/19 20:06 97.9 F 05/20/19 20:00 122 27 120/77 91 05/20/19 19:00 123 28 132/81 97 05/20/19 18:00 122 22 137/85 97 05/20/19 17:00 122 22 131/82 97 05/20/19 16:00 127 22 122/65 99 05/20/19 15:38 98.6 F 05/20/19 15:00 119 22 116/85 97 05/20/19 14:00 124 26 109/77 93 05/20/19 13:00 120 26 109/70 93 05/20/19 12:00 124 26 112/79 93 05/20/19 11:36 97.0 F L 05/20/19 10:00 122 26 107/74 93 05/20/19 09:00 117 28 122/68 98 05/20/19 07:55 116 24 112/79 96 05/20/19 07:06 98.7 F 05/20/19 07:00 116 05/20/19 06:00 112 29 113/74 94 05/20/19 05:00 113 29 125/72 93 05/20/19 04:00 109 26 133/86 96 05/20/19 03:00 110 25 125/75 98 05/20/19 02:00 109 21 116/79 99 05/20/19 01:00 117 26 109/95 93 05/20/19 00:00 110 24 117/76 97 05/19/19 23:58 97.5 F L Intake and Output 05/20/19 05/20/19 05/20/19 07:59 15:59 23:59 Intake Total 412 / 637.8 125.8 / 637.8 100 / 637.8 Output Total 625 / 1350 425 / 1350 300 / 1350 Balance -213 / -712.2 -299.2 / -712.2 -200 / -712.2 Intake: IV Fluids 412 / 637.8 125.8 / 637.8 100 / 637.8 3% Sodium Chloride 500 ML @ 10 162 / 187.8 25.8 / 187.8 mls/hr IVC .Q24H [facility] Rx#: [id number] Unasyn 3,000 MG In 0.9 % Sodium 100 / 200 100 / 200 Chloride (Mini-Bag +) 100 ML @ 200 mls/hr IVPB Q6HR [facility] Rx#: [id number] Vancocin 1,250 MG In 0.9 % 250 / 250 Sodium Chloride 250 ML @ 166.67 mls/hr IVPB Q12H [facility] Rx#: [id number] Output: Catheter 625 / 1350 425 / 1350 300 / 1350 - Lab 05/20/19 04:58 05/20/19 22:00 Consult Discharge Plan - Plan Referrals: NONE,PCP [Primary Care Provider] -
[2019-05-21 04:40] LABS: Basophils % 0.3 %; Eosinophils % 0.3 %; Hematocrit 32.9 % (37.5-50.1); Hemoglobin 11.3 g/dL (12.9-16.9); Immature Granulocytes % 0.6 % (0-4); Lymphocytes # 0.3 K/mcL (0.6-4.6); Mean Corpuscular HGB Conc 34.3 g/dL (31.6-35.5); Mean Corpuscular Hemoglobin 30.8 pg (28.0-33.3); Mean Corpuscular Volume 89.6 fL (83.0-100.0); Mean Platelet Volume 9.1 fL (9.4-12.4); Monocytes # 0.5 K/mcL (0.0-1.3); Monocytes % 7.1 %; Neutrophils # 5.8 K/mcL (1.6-8.9); Platelet Count 208 K/mcL (140-400); Red Blood Count 3.67 M/mcL (4.19-5.50); Red Cell Distribution Width 12.7 % (11.5-14.5); Segmented Neutrophils % 86.7 %; White Blood Count 6.7 K/mcL (4.3-11.1)
[2019-05-21 05:02] LABS: BUN/Creatinine Ratio 8 (6-26); Blood Urea Nitrogen 3 mg/dL (8-23); Calcium 9.4 mg/dL (8.6-10.3); Carbon Dioxide 20 mEq/L (23-29); Chloride 89 mEq/L (98-107); Glucose 94 mg/dL (70-105); Magnesium 1.9 mg/dL (1.6-2.6); Osmolality,Calculated 248 (280-300); Potassium 3.7 mEq/L (3.5-5.1); Sodium 121 mEq/L (136-145); eGFR For African Americans > 60 (> 60); eGFR For Non-African Americans > 60 (> 60)
[2019-05-21] MEDS: Ampicillin/Sulbactam 3,000 MG in 0.9 % Sodium Chloride Mini Bag 100 ML IVPB SCH ×3 (05:02→17:38)
[2019-05-21] MEDS: *HR* Heparin 5,000 UNIT/ML VIAL SQ SCH ×3 (05:02→21:58)
[2019-05-21] MEDS: Potassium Chloride 40 MEQ/200 ML BAG IVPB PRN ×2 (05:08→06:01)
--- NOTE | 2019-05-21 06:22 | Pulmonology Progress Note ---
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 The findings are concerning for a systemic process. Lymphoma is raised. Plan: - nephrology consulted, appreciate recommendations - 3% NS held currently - nephrology to possible use tolvaptan now that Na around 120 - continue sodium checks, serial checks - next Na pending at 10:00 - continue seizure precautions - continue CIWA protocol in the setting of EtOH abuse - on unasyn day 2, growing enteroccus in the urine - heme-onc consulted for further recommendations regarding acute encephalopathy ?MRI to r/o brain mets pt did have outpatient PET scan showing widespread hypermetabolism (2) Delirium due to general medical condition Current Visit: Yes Status: Acute Likely secondary to electrolyte abnormality, infxn by UTI and alcohol withdrawal. CT head negative. Will consult heme-onc for further recommendations regarding workup. ?brain mets... PET scan showed hypermetabolic morgan conglomerate is seen within the left lower cervical soft tissues, extending to the thoracic inlet, measuring approximately 4.0 x 3.0 cm, SUV maximum 20.7. (3) Lymphoma Current Visit: Yes Status: Acute Chronic. Noted on CT scan from 04/28. PET scan showing diffuse hypermetabolsim. Oncology consulted. Qualifiers: Lymphoma type: unspecified type Lymphoma site: multiple regions Qualified Code(s): C85.98 - Non-Hodgkin lymphoma, unspecified, lymph nodes of multiple sites (4) Adrenal abnormality Current Visit: Yes Status: Acute Hypermetabolic left adrneal on CT scan, suspicious for malignancy. Heme-onc c onsulted. (5) CAD (coronary artery disease) Current Visit: No Status: Chronic Chronic. Continue home rx. Qualifiers: Coronary Disease-Associated Artery/Lesion type: unspecified vessel or lesion type [place] vs. transplanted heart: unspecified whether [place] or transplanted heart Associated angina: with unspecified angina Qualified Code(s): I25.119 - Atherosclerotic heart disease of [place] coronary artery with unspecified angina pectoris (6) DVT prophylaxis Current Visit: Yes Status: Acute sq heparin (7) Alcohol abuse Current Visit: Yes Status: Acute On CIWA protocol. HOB elevated. Seizure precautions. (8) UTI (urinary tract infection) Current Visit: Yes Status: Acute UA positive for WBC, small leukocyte esterase, negative nitrites. Urine cx from 05/18 (+) for enterococcus faecalis, resistant to tetracyclines On Unasyn day 2 Qualifiers: Encounter type: subsequent encounter Qualified Code(s): T83.511D - Infection and inflammatory reaction due to indwelling urethral catheter, subsequent encounter; N39.0 - Urinary tract infection, site not specified Subjective Principal diagnosis: Encephalopathy, hyponatremia Interval history: Pt seen at bedside. Unable to answer questions. Very lethargic and loudly snoring. Grunts to sternal rub. Objective PUL Vital signs: Last Vital Signs Temp 97.5 F L 05/21/19 04:22 Pulse 119 05/21/19 06:00 Resp 23 05/21/19 06:00 BP 134/89 05/21/19 06:00 Pulse Ox 97 05/21/19 06:00 General appearance: asleep Eyes: nonicteric ENT: oropharynx dry Effort: normal, mildly labored Auscultation: bilateral: diminished breath sounds Cardiovascular: regular rate and rhythm Gastrointestinal: soft, non-tender Integumentary: normal Extremities: no edema, no ischemia or petechiae, cool Musculoskeletal: no deformities unable to assess due to mental status other (unable to assess due to mental status) Results - Laboratory Findings CBC and BMP: 05/21/19 04:00 05/21/19 03:34 ABG ABG pH 7.48 pH Units (7.32-7.45) H 05/18/19 02:25 ABG pCO2 23 mmHg (35-45) L 05/18/19 02:25 ABG pO2 63 mmHg (85-104) L 05/18/19 02:25 ABG O2 Saturation 94 % (95-98) L 05/18/19 02:25 PT/INR, D-dimer PT 13.3 Seconds (9.4-12.1) H 05/18/19 02:42 Abnormal lab findings: Abnormal lab results RBC 3.67 M/mcL (4.19-5.50) L 05/21/19 04:00 Hgb 11.3 g/dL (12.9-16.9) L 05/21/19 04:00 Hct 32.9 % (37.5-50.1) L 05/21/19 04:00 MCHC 36.2 g/dL (31.6-35.5) H 05/19/19 03:15 MPV 9.1 fL (9.4-12.4) L 05/21/19 04:00 0.3 K/mcL (0.6-4.6) L 05/21/19 04:00 PT 13.3 Seconds (9.4-12.1) H 05/18/19 02:42 ABG pH 7.48 pH Units (7.32-7.45) H 05/18/19 02:25 ABG pCO2 23 mmHg (35-45) L 05/18/19 02:25 ABG pO2 63 mmHg (85-104) L 05/18/19 02:25 ABG HCO3 17 mEq/L (21-27) L 05/18/19 02:25 ABG Total CO2 18 mEq/L (20-26) L 05/18/19 02:25 ABG O2 Saturation 94 % (95-98) L 05/18/19 02:25 ABG Base Excess -5 mEq/L (-2 to 3) L 05/18/19 02:25 Sodium 121 mEq/L (136-145) L 05/21/19 03:34 Chloride 89 mEq/L (98-107) L 05/21/19 03:34 Carbon Dioxide 20 mEq/L (23-29) L 05/21/19 03:34 BUN 3 mg/dL (8-23) L 05/21/19 03:34 0.40 mg/dL (0.70-1.30) L 05/21/19 03:34 222 mOsm/kg (280-300) L 05/18/19 11:50 248 (280-300) L 05/21/19 03:34 2.0 mg/dL (2.3-7.6) L 05/18/19 12:38 Calcium 8.5 mg/dL (8.6-10.3) L 05/20/19 01:10 Venous Ioniz Calcium 1.06 mmol/L (1.15-1.35) L 05/19/19 03:30 1.3 mg/dL (0.3-1.0) H 05/19/19 09:40 0.6 mg/dL (0.0-0.2) H 05/19/19 09:40 AST 40 Units/L (13-39) H 05/19/19 09:40 124 Units/L (34-104) H 05/19/19 09:40 272 Units/L (140-271) H 05/18/19 12:38 B-Natriuretic Peptide 358 pg/mL (Less than 100) H 05/19/19 03:15 5.8 g/dL (6.4-8.9) L 05/19/19 09:40 3.2 g/dL (3.5-5.7) L 05/19/19 09:40 0.36 ng/mL (0.00-0.15) H 05/18/19 11:50 Ur Specific [place] 1.008 (1.010-1.025) L 05/18/19 08:13 40 mg/dL (Negative) H 05/18/19 08:13 Small (Negative) H 05/18/19 08:13 Ur Leukocyte Esterase Small (Negative) H 05/18/19 08:13 15-30 per hpf (0-3) H 05/18/19 08:13 3-5 per hpf (0-3) H 05/18/19 08:13 Ur Culture Indicated? YES (NO) A 05/18/19 08:13 - Microbiology Findings Microbiology Findings: Microbiology, Last 48 Hours 05/18/19 08:13 Urine Culture - Final Urine,[place] Enterococcus faecalis - Clinical Findings Intake & Output: Intake & Output 05/20/19 05/20/19 05/21/19 15:59 23:59 07:59 Intake Total 125.8 / 737.8 200 / 737.8 811.2 / 811.2 Output Total 425 / 1550 500 / 1550 300 / 300 Balance -299.2 / -812.2 -300 / -812.2 511.2 / 511.2 Weight 48.7 kg Consult Discharge Plan - Plan Referrals: NONE,PCP [Primary Care Provider] - <Carmela Ocampojeffery S - Last Filed: 05/21/19 22:37> Date of Encounter: 05/21/19 Assessment and Plan (1) Delirium due to general medical condition Current Visit: Yes Status: Acute (2) Hyponatremia Current Visit: Yes Status: Acute (3) Encephalopathy Current Visit: Yes Status: Acute (4) Lymphoma Current Visit: Yes Status: Acute Qualifiers: Lymphoma type: unspecified type Lymphoma site: multiple regions Qualified Code(s): C85.98 - Non-Hodgkin lymphoma, unspecified, lymph nodes of multiple sites (5) Alcohol abuse Current Visit: Yes Status: Acute (6) UTI (urinary tract infection) Current Visit: Yes Status: Acute Qualifiers: Encounter type: subsequent encounter Qualified Code(s): T83.511D - Infection and inflammatory reaction due to indwelling urethral catheter, subsequent encounter; N39.0 - Urinary tract infection, site not specified Objective PUL Vital signs: Last Vital Signs Temp 97.7 F 05/21/19 19:00 Pulse 122 05/21/19 22:00 Resp 28 05/21/19 22:00 BP 124/92 05/21/19 22:00 Pulse Ox 100 05/21/19 22:00 Results - Laboratory Findings CBC and BMP: 05/21/19 04:00 05/21/19 19:58 ABG ABG pH 7.48 pH Units (7.32-7.45) H 05/18/19 02:25 ABG pCO2 23 mmHg (35-45) L 05/18/19 02:25 ABG pO2 63 mmHg (85-104) L 05/18/19 02:25 ABG O2 Saturation 94 % (95-98) L 05/18/19 02:25 PT/INR, D-dimer PT 13.3 Seconds (9.4-12.1) H 05/18/19 02:42 Abnormal lab findings: Abnormal lab results RBC 3.67 M/mcL (4.19-5.50) L 05/21/19 04:00 Hgb 11.3 g/dL (12.9-16.9) L 05/21/19 04:00 Hct 32.9 % (37.5-50.1) L 05/21/19 04:00 MCHC 36.2 g/dL (31.6-35.5) H 05/19/19 03:15 MPV 9.1 fL (9.4-12.4) L 05/21/19 04:00 0.3 K/mcL (0.6-4.6) L 05/21/19 04:00 PT 13.3 Seconds (9.4-12.1) H 05/18/19 02:42 ABG pH 7.48 pH Units (7.32-7.45) H 05/18/19 02:25 ABG pCO2 23 mmHg (35-45) L 05/18/19 02:25 ABG pO2 63 mmHg (85-104) L 05/18/19 02:25 ABG HCO3 17 mEq/L (21-27) L 05/18/19 02:25 ABG Total CO2 18 mEq/L (20-26) L 05/18/19 02:25 ABG O2 Saturation 94 % (95-98) L 05/18/19 02:25 ABG Base Excess -5 mEq/L (-2 to 3) L 05/18/19 02:25 Sodium 124 mEq/L (136-145) L 05/21/19 19:58 Chloride 89 mEq/L (98-107) L 05/21/19 03:34 Carbon Dioxide 20 mEq/L (23-29) L 05/21/19 03:34 BUN 3 mg/dL (8-23) L 05/21/19 03:34 0.40 mg/dL (0.70-1.30) L 05/21/19 03:34 222 mOsm/kg (280-300) L 05/18/19 11:50 248 (280-300) L 05/21/19 03:34 2.0 mg/dL (2.3-7.6) L 05/18/19 12:38 Calcium 8.5 mg/dL (8.6-10.3) L 05/20/19 01:10 Venous Ioniz Calcium 1.06 mmol/L (1.15-1.35) L 05/19/19 03:30 1.3 mg/dL (0.3-1.0) H 05/19/19 09:40 0.6 mg/dL (0.0-0.2) H 05/19/19 09:40 AST 40 Units/L (13-39) H 05/19/19 09:40 124 Units/L (34-104) H 05/19/19 09:40 272 Units/L (140-271) H 05/18/19 12:38 B-Natriuretic Peptide 358 pg/mL (Less than 100) H 05/19/19 03:15 5.8 g/dL (6.4-8.9) L 05/19/19 09:40 3.2 g/dL (3.5-5.7) L 05/19/19 09:40 0.36 ng/mL (0.00-0.15) H 05/18/19 11:50 Ur Specific [place] 1.008 (1.010-1.025) L 05/18/19 08:13 40 mg/dL (Negative) H 05/18/19 08:13 Small (Negative) H 05/18/19 08:13 Ur Leukocyte Esterase Small (Negative) H 05/18/19 08:13 15-30 per hpf (0-3) H 05/18/19 08:13 3-5 per hpf (0-3) H 05/18/19 08:13 Ur Culture Indicated? YES (NO) A 05/18/19 08:13 - Microbiology Findings Microbiology Findings: Microbiology, Last 48 Hours 05/18/19 08:13 Urine Culture - Final Urine,[place] Enterococcus faecalis - Clinical Findings Intake & Output: Intake & Output 05/21/19 05/21/19 05/21/19 07:59 15:59 23:59 Intake Total 1011.2 / 1315.2 204 / 1315.2 100 / 1315.2 Output Total 300 / 1400 475 / 1400 625 / 1400 Balance 711.2 / -84.8 -271 / -84.8 -525 / -84.8 - Attending Attestation I saw and evaluated this patient and my medical decision-making was reviewed with the Resident Physician. I agree with the documented findings, disposition and treatment plan as described except to the extent set forth below. We independently had [id number] contact with the patient I spent 33 MINUTES of Critical Care time with this patient. It involved decision making of high complexity to assess, manipulate, and support vital organ system failure and/or to prevent further life threatening deterioration of the patient's condition. The time involved in the performance of separately reportable procedures was not counted toward critical care time. Patient seen and examined at bedside Labs, radiology, chart personally reviewed. Management was reviewed during multidisciplinary critical care rounds. [employer]: Patient is still on and off confused most likely toxic/metabolic encephalopathy complicated by hyponatremia, enterococcus UTI and alcohol withdrawal. If there is persistent encephalopathy need [employer] imaging. We will consult oncology and further workup will need for this most likely lymphoma Pulm: Patient has acceptable oxygenation and ventilation to continue the current O2 supplementation. Cards: Is hemodynamically stable FEN-GI: Because of altered mental status patient cannot take by mouth Renal: Labs and output were reviewed patient hyponatremia slowly correcting nephrology following picture most likely SIADH secondary to possible lymphoma ID: To continue Unasyn for enterococcus in the urine Heme/Onc: Patient has significant lymph node swelling most likely lymphoma we will consult oncology for further input on further imaging. Endo: Glucose Monitored Integ/MSK: Skin Care per routine ICU Nursing Protocol to prevent ulcers. Lines: All lines examined without evidence of infection : Dispo: critically can be stepdown tomorrow CODE: Full code
[2019-05-21] MEDS: Folic Acid 1 MG TABLET PO SCH (07:27)
[2019-05-21] MEDS: *HR* LORazepam 2 MG/ML VIAL IVP PRN (10:25)
--- NOTE | 2019-05-21 16:01 | Oncology Inp Consult Note ---
<Tom Okeefe - Last Filed: 05/21/19 20:53> Date of Encounter: 05/21/19 - Data of Consult Requesting Physician: Randi Latif MD Primary Care Provider: PCP NONE Medications and Allergies Amlodipine Besylate 10 mg PO DAILY 05/18/19 [History] Aspirin 81 mg PO DAILY 05/18/19 [History] Atenolol [Tenormin] 100 mg PO DAILY 05/18/19 [History] Atorvastatin [Lipitor] 20 mg PO HS 05/18/19 [History] Cholecalciferol (Vitamin D3) [Vitamin D3] 2,000 unit PO DAILY 05/18/19 [History] Clopidogrel [Plavix] 75 mg PO DAILY 05/18/19 [History] Cyclobenzaprine [Flexeril] 10 mg PO HS 05/18/19 [History] Lisinopril [Zestril] 40 mg PO BID 05/18/19 [History] Pantoprazole Sodium [Protonix] 20 mg PO DAILY 05/18/19 [History] Sodium Chloride [Sodium Chloride Tab] 1 gm PO BID 05/18/19 [History] Tamsulosin HCl [Flomax] 0.4 mg PO DAILY 05/18/19 [History] Umeclidinium Brm/Vilanterol Tr [Anoro Ellipta 62.5-25 Mcg INH] 1 each IH DAILY 05/18/19 [History] cloNIDine HCl [CloNIDine HCl] 0.1 mg PO BID 05/18/19 [History] Allergy/AdvReac Type Severity Reaction Status Date / Time No Known Allergies Allergy Verified 05/18/19 02:24 Consult Discharge Plan - Plan Referrals: NONE,PCP [Primary Care Provider] - - Attending Attestation I have seen and examined Mr. Perez and agree with the impression and plan put in place by Mr. Soriano. During a lung cancer screening evaluation, he was found to have adenopathy involving the left lower neck, superior mediastinum, retroperitoneum, and mesentery. Focal hypermetabolic activity was involving the left brachiocephalic vein. Multiple hypermetabolic hepatic lesions and vertebral body lesions, compatible with disease involvement at the sites. There was also a lesion involving the pancreas I personally reviewed imaging. He presented with severe, symptomatic hyponatremia and receiving 3% saline. He is currently sedated on CIWA protocol as he is an alcoholic averaging 4-8 beers nightly. On exam, he is sedated. Left lower cervical/supraclavicular adenopathy is deep and difficult to palpate. Although lymphoma is a concern, a metastatic pancreas carcinoma or CUP is also a consideration. I think proceeding CT guided biopsy by IR would be the next logical step once his mental status and hyponatremia have improved. If this is nondiagnostic or a lymphoma is identified but difficult to differentiate, we can proceed with excisional biopsy. Baseline HepB, HepC, HIV serologies ordered. Inpatient Charges Provider: Dr. Casper Okeefe Consult - Inpatient: [id number] <Jean Soriano Jr - Last Filed: 05/22/19 10:51> Date of Encounter: 05/22/19 Time of Encounter: 15:58 Assessment and Plan (1) Lymphoma Status: Acute Assessment and plan: This is a 64-year-old male in the intensive care unit being treated for hyponatremia with history of alcohol abuse. Oncology consult a due to widespread lymphadenopathy on recent outpatient testing. After speaking to his Naz, he was encouraged by his track maintainer, Dr Snider, to obtain an [place] low-dose radiation CT scan as a screening for lung cancer due to multiple risk factors for lung cancer. On April 28 this is accomplished, with widespread lymphadenopathy in his chest cavity, suspicious for neoplastic process. Patient was then seen by primary care and that ordered PET scan, which was completed on May 08. Results showed focal hypermetabolism at the pancreatic body can be due pancreatic carcinoma or secondary involvement by lymphoma. He has significant hypermetabolic adenopathy is seen within the left lower neck, superior mediastinum, retroperitoneum, and mesentery. Focal hypermetabolism is also seen of the left brachiocephalic vein. He has multiple hypermetabolic hepatic lesions and vertebral body lesions, hypermetabolic left adrenal gland, suspicious for malignancy, probable lymphoma. After PET scan, he was scheduled for preadmission testing on May 26 here to [place], with biopsy on June [address] Mayo Kern. He then had an appointment with medical oncologist, Dr. Flex Smyth, June 11 at [facility]. However, he became acutely ill and now is admitted to our intensive care unit. Recommendation is to keep the patient medically stable We are evaluating the possibility of a biopsy while he is inpatient due to his extensive disease. Labs will be ordered for HIV, hepatits panel We are considering inpatient biopsy of one of the lymph nodes if palpable or in location easily accessed. Dr.Jeffrey Okeefe assessed patient with me today, and he will make any further decisions replace any new orders Thank you for allowing us to participate in your patient's care Qualifiers: Lymphoma type: unspecified type Lymphoma site: multiple regions Qualified Code(s): C85.98 - Non-Hodgkin lymphoma, unspecified, lymph nodes of multiple sites - Data of Consult Patient: new to practice Consult date: 05/21/19 Requesting Physician: Randi Latif MD Primary Care Provider: PCP NONE - Consult Narrative Reason for consult: widespread lymphadenopathy History of present illness: Mr. Perez is a 64 year old male with a past medical history of coronary artery disease, dementia, hypertension, BPH, and recently diagnosed probable metastatic lymphoma who presented to the emergency department for increased confusion over baseline dementia. Per ED note family states the patient has been increasingly confused over the last several days. CT of the head and was without acute intracranial abnormality, labs demonstrated profound hyponatremia of 104. Patient was recently scanned with a lung cancer screening at [place] on April 28 that showed widespread lymphadenopathy of this chest cavity, suspicious for neoplastic process. Patient had a PET scan May 08 ordered by PCP that showed widespread lymphadenopathy in multiple regions of his body, including chest, liver, abdomen, retroperitoneal regions. Patient was scheduled in May 2019 for preadmission testing, a lymph node biopsy with his general surgeon, and a follow-up with [facility] with medical oncologist on June 11 Oncology consult as inpatient for further treatment recommendations Past Med Surg Social Fam HX - Past Medical History Medical history: COPD, hypertension Additional medical history: possilbe lymphoma, chronic low back pain, Psychiatric history: no psych history - Social History Smoking Status: Former smoker Alcohol use: heavy Drug use: none Constitutional: Present: lethargy, night sweats Respiratory: Present: cough, dyspnea Psychiatric: Present: anxiety, difficulty concentrating Oncology - Exam - Constitutional General appearance: mild distress - Head Head exam: Present: normal inspection, normocephalic - Eye Eye exam: Present: PERRL - ENT ENT exam: Present: mucous membranes dry - Neck Neck exam: Present: full ROM - Respiratory Respiratory exam: Present: decreased breath sounds - Cardiovascular Cardiovascular exam: Present: RRR - GI/Abdominal GI/Abdominal exam: Present: soft - Psychiatric Psychiatric exam: Present: agitated, anxious - Skin Skin exam: Present: dry, intact Oncology Inpatient Results Labs: Laboratory Last Values WBC 6.7 K/mcL (4.3-11.1) 05/21/19 04:00 RBC 3.67 M/mcL (4.19-5.50) L 05/21/19 04:00 Hgb 11.3 g/dL (12.9-16.9) L 05/21/19 04:00 Hct 32.9 % (37.5-50.1) L 05/21/19 04:00 MCV 89.6 fL (83.0-100.0) 05/21/19 04:00 MCH 30.8 pg (28.0-33.3) 05/21/19 04:00 MCHC 34.3 g/dL (31.6-35.5) 05/21/19 04:00 RDW 12.7 % (11.5-14.5) 05/21/19 04:00 Plt Count 208 K/mcL (140-400) 05/21/19 04:00 MPV 9.1 fL (9.4-12.4) L 05/21/19 04:00 Immature Gran % 0.6 % (0-4) 05/21/19 04:00 Seg Neutrophils % 86.7 % 05/21/19 04:00 5.0 % 05/21/19 04:00 7.1 % 05/21/19 04:00 0.3 % 05/21/19 04:00 0.3 % 05/21/19 04:00 5.8 K/mcL (1.6-8.9) 05/21/19 04:00 0.3 K/mcL (0.6-4.6) L 05/21/19 04:00 0.5 K/mcL (0.0-1.3) 05/21/19 04:00 0.0 K/mcL (0.0-0.6) 05/21/19 04:00 0.0 K/mcL (0.0-0.2) 05/21/19 04:00 Immature Plt Fraction 5.4 % (1.1-6.1) 05/18/19 12:38 PT 13.3 Seconds (9.4-12.1) H 05/18/19 02:42 INR 1.2 05/18/19 02:42 APTT 31.5 Seconds (26.0-36.0) 05/18/19 02:42 ABG pH 7.48 pH Units (7.32-7.45) H 05/18/19 02:25 ABG pCO2 23 mmHg (35-45) L 05/18/19 02:25 ABG pO2 63 mmHg (85-104) L 05/18/19 02:25 ABG HCO3 17 mEq/L (21-27) L 05/18/19 02:25 ABG Total CO2 18 mEq/L (20-26) L 05/18/19 02:25 ABG O2 Saturation 94 % (95-98) L 05/18/19 02:25 ABG Base Excess -5 mEq/L (-2 to 3) L 05/18/19 02:25 O2 Delivery Device Room Air 05/18/19 02:25 Sodium 121 mEq/L (136-145) L 05/21/19 10:28 Potassium 3.7 mEq/L (3.5-5.1) 05/21/19 03:34 Chloride 89 mEq/L (98-107) L 05/21/19 03:34 Carbon Dioxide 20 mEq/L (23-29) L 05/21/19 03:34 BUN 3 mg/dL (8-23) L 05/21/19 03:34 0.40 mg/dL (0.70-1.30) L 05/21/19 03:34 Est GFR ( Amer) > 60 (> 60) 05/21/19 03:34 Est GFR (Non-Af Amer) > 60 (> 60) 05/21/19 03:34 8 (6-26) 05/21/19 03:34 Glucose 94 mg/dL (70-105) 05/21/19 03:34 POC Glucose 96 mg/dL (70-99) 05/18/19 07:55 222 mOsm/kg (280-300) L 05/18/19 11:50 248 (280-300) L 05/21/19 03:34 Lactic Acid 1.0 mmol/L (0.5-2.2) 05/18/19 02:42 2.0 mg/dL (2.3-7.6) L 05/18/19 12:38 Calcium 9.4 mg/dL (8.6-10.3) 05/21/19 03:34 Venous Ioniz Calcium 1.17 mmol/L (1.15-1.35) 05/20/19 01:24 Phosphorus 3.0 mg/dL (2.7-4.5) 05/21/19 03:34 Magnesium 1.9 mg/dL (1.6-2.6) 05/21/19 03:34 1.3 mg/dL (0.3-1.0) H 05/19/19 09:40 0.6 mg/dL (0.0-0.2) H 05/19/19 09:40 0.7 mg/dL (0.0-1.2) 05/19/19 09:40 AST 40 Units/L (13-39) H 05/19/19 09:40 ALT 29 Units/L (7-52) 05/19/19 09:40 124 Units/L (34-104) H 05/19/19 09:40 27 mcmol/L (16-53) 05/18/19 02:42 272 Units/L (140-271) H 05/18/19 12:38 < 0.03 ng/mL (< 0.04) 05/18/19 02:42 B-Natriuretic Peptide 358 pg/mL (Less than 100) H 05/19/19 03:15 5.8 g/dL (6.4-8.9) L 05/19/19 09:40 3.2 g/dL (3.5-5.7) L 05/19/19 09:40 2.6 g/dL (2.4-3.5) 05/19/19 09:40 1.2 (1.1-2.2) 05/19/19 09:40 0.36 ng/mL (0.00-0.15) H 05/18/19 11:50 TSH 1.435 mcIU/mL (0.340-5.600) 05/18/19 02:42 16.1 mcg/dl 05/18/19 05:53 Yellow (Yellow) 05/18/19 08:13 Clear (Clear) 05/18/19 08:13 6.0 pH Units (5.0-8.0) 05/18/19 08:13 Ur Specific [place] 1.008 (1.010-1.025) L 05/18/19 08:13 Negative mg/dL (Neg-Trace) 05/18/19 08:13 Normal mg/dL (Normal) 05/18/19 08:13 40 mg/dL (Negative) H 05/18/19 08:13 Small (Negative) H 05/18/19 08:13 Negative (Negative) 05/18/19 08:13 Negative (Negative) 05/18/19 08:13 Normal mg/dL (Normal) 05/18/19 08:13 Ur Leukocyte Esterase Small (Negative) H 05/18/19 08:13 15-30 per hpf (0-3) H 05/18/19 08:13 3-5 per hpf (0-3) H 05/18/19 08:13 Ur Squamous Epith Cells Few per lpf (None-Few) 05/18/19 08:13 None Seen per hpf (None-Few) 05/18/19 08:13 Hyaline Casts None Seen per lpf (None-Few) 05/18/19 08:13 Ur Culture Indicated? YES (NO) A 05/18/19 08:13 341 mOsm/kg (300-1090) 05/18/19 06:18 73.4 mEq/L 05/18/19 06:18 Negative (Negative) 05/18/19 12:53 Negative ng/mL (Xowzwh=187) 05/18/19 02:43 Ur Barbiturates Screen Negative ng/mL (Ekirjz=161) 05/18/19 02:43 Ur Phencyclidine Scrn Negative ng/mL (Cutoff=25) 05/18/19 02:43 Ur Amphetamines Screen Negative ng/mL (Urfhfx=9705) 05/18/19 02:43 U Benzodiazepines Scrn Negative ng/mL (Qntxoq=641) 05/18/19 02:43 Negative ng/mL (Cutoff= 300) 05/18/19 02:43 U Marijuana (THC) Screen Negative ng/mL (Cutoff = 50) 05/18/19 02:43 Ur Drug Screen Interp See Below 05/18/19 02:43 Ethyl Alcohol < 10 mg/dL (Less than 10) 05/18/19 02:42
--- NOTE | 2019-05-21 23:54 | Nephrology Progress Note ---
Date of Encounter: 05/21/19 Time of Encounter: 12:00 - Assessment and Plan (1) Hyponatremia Current Visit: Yes Status: Acute Sodium noted at 121, stable off hypertonic saline . 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, may require tolvaptan/conivaptan if no fu rther improvement in sodium, will monitor for now Continue fluid restriction if possible Add salt to diet when able to eat (2) Delirium due to general medical condition Current Visit: Yes Status: Acute Likely due to severe hyponatremia, EtOH withdrawal and UTI EtOH withdrawal precautions advised (3) Lymphoma Current Visit: Yes Status: Acute Oncology consult per primary team Qualifiers: Lymphoma type: unspecified type Lymphoma site: multiple regions Qualified Code(s): C85.98 - Non-Hodgkin lymphoma, unspecified, lymph nodes of multiple sites (4) Pleural effusion Current Visit: Yes Status: Acute Per primary Subjective Principal diagnosis: Encephalopathy, hyponatremia Interval history: Pt seen and examined resting comfortably after ativan given. Per nurse, still gets agitated and restless without ativan Objective - Vital Signs Vital signs: Vital Signs Temp Pulse Resp BP Pulse Ox 05/21/19 23:00 122 22 129/90 100 05/21/19 22:00 122 28 124/92 100 05/21/19 21:00 121 30 126/76 100 05/21/19 20:00 121 23 125/84 98 05/21/19 19:00 97.7 F 120 28 110/81 99 05/21/19 18:00 120 28 121/62 99 05/21/19 17:10 97.9 F 05/21/19 17:00 115 28 112/75 99 05/21/19 16:00 97.9 F 115 26 123/84 99 05/21/19 15:00 114 24 119/80 95 05/21/19 14:00 122 24 123/74 95 05/21/19 13:00 110 24 132/67 95 05/21/19 12:32 112 30 111/82 100 05/21/19 12:11 97.0 F L 05/21/19 11:00 112 22 126/75 100 05/21/19 10:00 116 26 117/76 100 05/21/19 09:00 110 26 129/87 100 05/21/19 08:49 97.3 F L 05/21/19 08:00 97.3 F L 110 26 124/75 100 05/21/19 07:00 112 26 115/91 100 05/21/19 06:00 119 23 134/89 97 05/21/19 05:00 121 25 121/78 100 05/21/19 04:22 97.5 F L 05/21/19 04:00 122 23 120/87 91 05/21/19 03:00 115 28 131/85 98 05/21/19 02:00 120 24 142/85 96 05/21/19 01:00 113 24 122/74 93 05/21/19 00:00 114 23 126/92 94 Intake and Output 05/21/19 05/21/19 05/21/19 07:59 15:59 23:59 Intake Total 1011.2 / 1315.2 204 / 1315.2 100 / 1315.2 Output Total 300 / 1400 475 / 1400 625 / 1400 Balance 711.2 / -84.8 -271 / -84.8 -525 / -84.8 Intake: IV Fluids 1011.2 / 1315.2 204 / 1315.2 100 / 1315.2 Unasyn 3,000 MG In 0.9 % Sodium 100 / 300 100 / 300 100 / 300 Chloride (Mini-Bag +) 100 ML @ 200 mls/hr IVPB Q6HR [facility] Rx#: [id number] Magnesium Sulfate 2 GM In 0.9 % 104 / 104 Sodium Chloride 100 ML @ 52 mls/hr IVPB Q6H [facility] Rx#: [id number] Potassium Chloride 20 mEq/100 400 / 400 mL 40 meq In 200 ml @ 100 mls/ hr IVPB Q1H [facility] Rx#:[id number] Vitamin B-1 100 MG Folvite 1 MG 511.2 / 511.2 M.v.i. Adult 10 ml In 0.9 % Sodium Chloride 500 ML @ 85.2 mls/hr IVPB DAILY@1800 [facility] Rx#: [id number] Oral 0 / 0 Output: Catheter 300 / 1400 475 / 1400 625 / 1400 - General Appearance General appearance: Present: chronically ill (NAD), fatigue EENT: Present: ATNC, mucous membranes moist Neck: Present: no JVD, supple Additional Comments: decreased BS bases bilat ant Cardiology: Present: no edema, normal S1, normal S2 Gastrointestinal: Present: no tenderness, no guarding Integumentary: Present: warm and dry Neurologic: Present: confused, disoriented Musculoskeletal: Present: no deformities Psychiatric: Present: agitated - Lab 05/21/19 04:00 05/21/19 19:58 Consult Discharge Plan - Plan Referrals: NONE,PCP [Primary Care Provider] -
[2019-05-22] MEDS: Ampicillin/Sulbactam 3,000 MG in 0.9 % Sodium Chloride Mini Bag 100 ML IVPB SCH ×2 (00:18→06:06)
[2019-05-22] MEDS: *HR* Heparin 5,000 UNIT/ML VIAL SQ SCH (06:06)
--- NOTE | 2019-05-22 06:32 | Pulmonology Progress Note ---
<Christ Bauer S - Last Filed: 05/22/19 10:56> Date of Encounter: 05/22/19 Time of Encounter: 07:23 Assessment and Plan (1) Hyponatremia Current Visit: Yes Status: Acute Improving. Pt presenting to [facility] on 05/18 with AMS - at that time sodium found to be 104 - likely secondary to SIADH in the setting of lymphoma Sodium this morning 124 Urine studies showing likely setting of SIADH Chest CT on 04/28: Multiple lung abnormalities as well as lymphadenopathy in the lower neck, mediastinum, retrocrural and upper abdomen. The findings are concerning for a systemic process. Lymphoma is raised. Plan: - nephrology consulted, appreciate recommendations - 3% NS held currently - fluid restiction - add salt when able to weak - nephrology to possible use tolvaptan depending on clinical course - continue sodium checks, serial checks - 0400 BMP pending - continue seizure precautions - continue CIWA protocol in the setting of EtOH abuse - on unasyn day 3, growing enteroccus in the urine - heme-onc consulted for further recommendations regarding lymphoma - hepatitis panel and HIV testing pending per heme onc - considering inpatient bone marrow bx due to extensive disease (2) Delirium due to general medical condition Current Visit: Yes Status: Acute Likely secondary to electrolyte abnormality, infxn by UTI and alcohol withdrawal. CT head negative. Will consult heme-onc for further recommendations regarding workup. ?brain mets... PET scan showed hypermetabolic morgan conglomerate is seen within the left lower cervical soft tissues, extending to the thoracic inlet, measuring approximately 4.0 x 3.0 cm, SUV maximum 20.7. (3) Lymphoma Current Visit: Yes Status: Acute Chronic. Noted on CT scan from 04/28. PET scan showing diffuse hypermetabolsim. Oncology consulted. HIV testing pending, hepatitis panel pending. Heme-onc considering inpatient bone marrow biopsy due to extensive disease. Qualifiers: Lymphoma type: unspecified type Lymphoma site: multiple regions Qualified Code(s): C85.98 - Non-Hodgkin lymphoma, unspecified, lymph nodes of multiple sites (4) Adrenal abnormality Current Visit: Yes Status: Acute Hypermetabolic left adrneal on CT scan, suspicious for malignancy. Heme-onc cons ulted. (5) CAD (coronary artery disease) Current Visit: No Status: Chronic Chronic. Continue home rx. Qualifiers: Coronary Disease-Associated Artery/Lesion type: unspecified vessel or lesion type [place] vs. transplanted heart: unspecified whether [place] or transplanted heart Associated angina: with unspecified angina Qualified Code(s): I25.119 - Atherosclerotic heart disease of [place] coronary artery with unspecified angina pectoris (6) DVT prophylaxis Current Visit: Yes Status: Acute sq heparin (7) Alcohol abuse Current Visit: Yes Status: Acute On CIWA protocol. HOB elevated. Seizure precautions. (8) UTI (urinary tract infection) Current Visit: Yes Status: Acute UA positive for WBC, small leukocyte esterase, negative nitrites. Urine cx from 05/18 (+) for enterococcus faecalis, resistant to tetracyclines On Unasyn day 3 Qualifiers: Encounter type: subsequent encounter Qualified Code(s): T83.511D - Infection and inflammatory reaction due to indwelling urethral catheter, subsequent encounter; N39.0 - Urinary tract infection, site not specified Subjective Principal diagnosis: Encephalopathy, hyponatremia Interval history: Pt seen at bedside. Unable to answer questions. Able to wake up a little today but still very confused about surroundings. Objective PUL Vital signs: Last Vital Signs Temp 98.1 F 05/22/19 04:36 Pulse 124 05/22/19 06:00 Resp 32 05/22/19 06:00 BP 114/99 05/22/19 06:00 Pulse Ox 99 05/22/19 06:00 General appearance: lethargic, appears uncomfortable Eyes: nonicteric ENT: oropharynx dry Effort: normal, mildly labored Auscultation: bilateral: diminished breath sounds Cardiovascular: other (tacycardia) Gastrointestinal: soft, non-tender, non-distended Integumentary: normal Extremities: no clubbing, pink and warm, pulses normal, edema (mild nonpitting edema bilateral LE) Musculoskeletal: no deformities unable to assess due to mental status other (unable to assess) Results - Laboratory Findings CBC and BMP: 05/22/19 06:50 05/22/19 06:50 ABG ABG pH 7.48 pH Units (7.32-7.45) H 05/18/19 02:25 ABG pCO2 23 mmHg (35-45) L 05/18/19 02:25 ABG pO2 63 mmHg (85-104) L 05/18/19 02:25 ABG O2 Saturation 94 % (95-98) L 05/18/19 02:25 PT/INR, D-dimer PT 13.3 Seconds (9.4-12.1) H 05/18/19 02:42 Abnormal lab findings: Abnormal lab results RBC 3.67 M/mcL (4.19-5.50) L 05/21/19 04:00 Hgb 11.3 g/dL (12.9-16.9) L 05/21/19 04:00 Hct 32.9 % (37.5-50.1) L 05/21/19 04:00 MCHC 36.2 g/dL (31.6-35.5) H 05/19/19 03:15 MPV 9.1 fL (9.4-12.4) L 05/21/19 04:00 0.3 K/mcL (0.6-4.6) L 05/21/19 04:00 PT 13.3 Seconds (9.4-12.1) H 05/18/19 02:42 ABG pH 7.48 pH Units (7.32-7.45) H 05/18/19 02:25 ABG pCO2 23 mmHg (35-45) L 05/18/19 02:25 ABG pO2 63 mmHg (85-104) L 05/18/19 02:25 ABG HCO3 17 mEq/L (21-27) L 05/18/19 02:25 ABG Total CO2 18 mEq/L (20-26) L 05/18/19 02:25 ABG O2 Saturation 94 % (95-98) L 05/18/19 02:25 ABG Base Excess -5 mEq/L (-2 to 3) L 05/18/19 02:25 Sodium 124 mEq/L (136-145) L 05/21/19 19:58 Chloride 89 mEq/L (98-107) L 05/21/19 03:34 Carbon Dioxide 20 mEq/L (23-29) L 05/21/19 03:34 BUN 3 mg/dL (8-23) L 05/21/19 03:34 0.40 mg/dL (0.70-1.30) L 05/21/19 03:34 222 mOsm/kg (280-300) L 05/18/19 11:50 248 (280-300) L 05/21/19 03:34 2.0 mg/dL (2.3-7.6) L 05/18/19 12:38 Calcium 8.5 mg/dL (8.6-10.3) L 05/20/19 01:10 Venous Ioniz Calcium 1.06 mmol/L (1.15-1.35) L 05/19/19 03:30 1.3 mg/dL (0.3-1.0) H 05/19/19 09:40 0.6 mg/dL (0.0-0.2) H 05/19/19 09:40 AST 40 Units/L (13-39) H 05/19/19 09:40 124 Units/L (34-104) H 05/19/19 09:40 272 Units/L (140-271) H 05/18/19 12:38 B-Natriuretic Peptide 358 pg/mL (Less than 100) H 05/19/19 03:15 5.8 g/dL (6.4-8.9) L 05/19/19 09:40 3.2 g/dL (3.5-5.7) L 05/19/19 09:40 0.36 ng/mL (0.00-0.15) H 05/18/19 11:50 Ur Specific Coleman 1.008 (1.010-1.025) L 05/18/19 08:13 40 mg/dL (Negative) H 05/18/19 08:13 Small (Negative) H 05/18/19 08:13 Ur Leukocyte Esterase Small (Negative) H 05/18/19 08:13 15-30 per hpf (0-3) H 05/18/19 08:13 3-5 per hpf (0-3) H 05/18/19 08:13 Ur Culture Indicated? YES (NO) A 05/18/19 08:13 - Microbiology Findings Microbiology Findings: Microbiology, Last 48 Hours 05/18/19 08:13 Urine Culture - Final Urine,[place] Enterococcus faecalis - Clinical Findings Intake & Output: Intake & Output 05/21/19 05/21/19 05/22/19 15:59 23:59 07:59 Intake Total 204 / 1315.2 100 / 1315.2 100 / 100 Output Total 475 / 1400 625 / 1400 500 / 500 Balance -271 / -84.8 -525 / -84.8 -400 / -400 Weight 46.9 kg Consult Discharge Plan - Plan Referrals: NONE,PCP [Primary Care Provider] - <Garrett Ayala W - Last Filed: 05/22/19 16:15> Date of Encounter: 05/22/19 Objective PUL Vital signs: Last Vital Signs Temp 97.8 F 05/22/19 12:11 Pulse 121 05/22/19 14:00 Resp 24 05/22/19 14:00 BP 120/104 05/22/19 14:00 Pulse Ox 95 05/22/19 14:00 Results - Laboratory Findings CBC and BMP: 05/22/19 06:50 05/22/19 06:50 ABG ABG pH 7.48 pH Units (7.32-7.45) H 05/18/19 02:25 ABG pCO2 23 mmHg (35-45) L 05/18/19 02:25 ABG pO2 63 mmHg (85-104) L 05/18/19 02:25 ABG O2 Saturation 94 % (95-98) L 05/18/19 02:25 PT/INR, D-dimer PT 13.3 Seconds (9.4-12.1) H 05/18/19 02:42 Abnormal lab findings: Abnormal lab results RBC 3.81 M/mcL (4.19-5.50) L 05/22/19 06:50 Hgb 11.7 g/dL (12.9-16.9) L 05/22/19 06:50 Hct 34.0 % (37.5-50.1) L 05/22/19 06:50 MCHC 36.2 g/dL (31.6-35.5) H 05/19/19 03:15 MPV 8.7 fL (9.4-12.4) L 05/22/19 06:50 0.5 K/mcL (0.6-4.6) L 05/22/19 06:50 PT 13.3 Seconds (9.4-12.1) H 05/18/19 02:42 ABG pH 7.48 pH Units (7.32-7.45) H 05/18/19 02:25 ABG pCO2 23 mmHg (35-45) L 05/18/19 02:25 ABG pO2 63 mmHg (85-104) L 05/18/19 02:25 ABG HCO3 17 mEq/L (21-27) L 05/18/19 02:25 ABG Total CO2 18 mEq/L (20-26) L 05/18/19 02:25 ABG O2 Saturation 94 % (95-98) L 05/18/19 02:25 ABG Base Excess -5 mEq/L (-2 to 3) L 05/18/19 02:25 Sodium 126 mEq/L (136-145) L 05/22/19 06:50 Chloride 92 mEq/L (98-107) L 05/22/19 06:50 Carbon Dioxide 22 mEq/L (23-29) L 05/22/19 06:50 BUN 3 mg/dL (8-23) L 05/22/19 06:50 0.39 mg/dL (0.70-1.30) L 05/22/19 06:50 222 mOsm/kg (280-300) L 05/18/19 11:50 258 (280-300) L 05/22/19 06:50 2.0 mg/dL (2.3-7.6) L 05/18/19 12:38 Calcium 8.5 mg/dL (8.6-10.3) L 05/20/19 01:10 Venous Ioniz Calcium 1.06 mmol/L (1.15-1.35) L 05/19/19 03:30 1.3 mg/dL (0.3-1.0) H 05/19/19 09:40 0.6 mg/dL (0.0-0.2) H 05/19/19 09:40 AST 40 Units/L (13-39) H 05/19/19 09:40 124 Units/L (34-104) H 05/19/19 09:40 272 Units/L (140-271) H 05/18/19 12:38 B-Natriuretic Peptide 358 pg/mL (Less than 100) H 05/19/19 03:15 5.8 g/dL (6.4-8.9) L 05/19/19 09:40 3.2 g/dL (3.5-5.7) L 05/19/19 09:40 0.36 ng/mL (0.00-0.15) H 05/18/19 11:50 Ur Specific Coleman 1.008 (1.010-1.025) L 05/18/19 08:13 40 mg/dL (Negative) H 05/18/19 08:13 Small (Negative) H 05/18/19 08:13 Ur Leukocyte Esterase Small (Negative) H 05/18/19 08:13 15-30 per hpf (0-3) H 05/18/19 08:13 3-5 per hpf (0-3) H 05/18/19 08:13 Ur Culture Indicated? YES (NO) A 05/18/19 08:13 - Clinical Findings Intake & Output: Intake & Output 05/22/19 05/22/19 05/22/19 07:59 15:59 23:59 Intake Total 200 / 300 100 / 300 Output Total 500 / 750 250 / 750 Balance -300 / -450 -150 / -450 Weight 46.9 kg - Attending Attestation I examined this patient and my medical decision-making was reviewed with the Resident Physician. I agree with the documented findings, disposition and treatment plan as described except to the extent set forth below. We independently had [id number] contact with the patient Patient seen and examined at bedside Labs, radiology, chart personally reviewed. Management was reviewed during multidisciplinary critical care rounds. FRUIT WORKER: Patient has encephalopathy secondary to metabolic derangements as well as ethanol withdrawal CIWA scores have been acceptable continue benzodiazepine as needed for withdrawal hyponatremia has resolved patient is more coherent today no focal deficit no evidence of metastatic disease in the brain Pulm: Acceptable oxygenation Cards: Blood pressure monitored and stable GI: Consider advancing diet after bedside speech and swallow eval Renal: Hyponatremia secondary to SIADH nephrology following and this is improving continue fluid restriction. UOP Monitored, Cont to Trend sCr and monitor Electrolytes. ID: He is being treated for urinary tract infection will need to be treated for 10-14 days Heme/Onc: DVT prophylaxis given; suspected metastatic lymphoma oncology following Endo: Glucose Monitored Integ/MSK: Skin Care per routine ICU Nursing Protocol to prevent ulcers. Lines: All lines examined without evidence of infection : Dispo: Stable for transfer to telemetry (2N) for ongoing care CODE:Full
[2019-05-22] MEDS ORDERED: *HR* Metoprolol 5 MG/5 ML VIAL IVP ONE (06:54)
[2019-05-22 07:04] LABS: Basophils % 0.4 %; Eosinophils % 0.3 %; Hemoglobin 11.7 g/dL (12.9-16.9); Immature Granulocytes % 0.9 % (0-4); Lymphocytes # 0.5 K/mcL (0.6-4.6); Lymphocytes % 6.8 %; Mean Corpuscular HGB Conc 34.4 g/dL (31.6-35.5); Mean Corpuscular Hemoglobin 30.7 pg (28.0-33.3); Mean Corpuscular Volume 89.2 fL (83.0-100.0); Mean Platelet Volume 8.7 fL (9.4-12.4); Monocytes # 0.5 K/mcL (0.0-1.3); Neutrophils # 5.7 K/mcL (1.6-8.9); Platelet Count 160 K/mcL (140-400); Red Blood Count 3.81 M/mcL (4.19-5.50); Red Cell Distribution Width 12.8 % (11.5-14.5); Segmented Neutrophils % 83.6 %; White Blood Count 6.8 K/mcL (4.3-11.1)
[2019-05-22] MEDS: Folic Acid 1 MG TABLET PO SCH (07:44)
[2019-05-22 08:01] LABS: Hepatitis B Surface Antigen Nonreactive (Nonreactive)
[2019-05-22 08:04] LABS: BUN/Creatinine Ratio 8 (6-26); Blood Urea Nitrogen 3 mg/dL (8-23); Calcium 9.9 mg/dL (8.6-10.3); Carbon Dioxide 22 mEq/L (23-29); Chloride 92 mEq/L (98-107); Glucose 91 mg/dL (70-105); Osmolality,Calculated 258 (280-300); Potassium 3.9 mEq/L (3.5-5.1); Sodium 126 mEq/L (136-145); eGFR For African Americans > 60 (> 60); eGFR For Non-African Americans > 60 (> 60)
[2019-05-22 08:30] LABS: HIV-1&2 Antibody & p24 Ag Nonreactive (Nonreactive); Hepatitis C Virus Antibody Nonreactive (Nonreactive)
[2019-05-22 08:31] LABS: Hepatitis B Core IgM Nonreactive (Nonreactive)
[2019-05-22 08:33] LABS: Hepatitis A Antibody IgM Nonreactive (Nonreactive)
[2019-05-22] MEDS ORDERED: *HR* LORazepam 2 MG/ML VIAL IVP PRN ×2 (09:27)
[2019-05-22] MEDS ORDERED: Acetaminophen 325 MG TABLET PO PRN (09:27)
[2019-05-22] MEDS ORDERED: Naloxone 0.4 MG/ML INJ IVP PRN (09:27)
[2019-05-22] MEDS ORDERED: Ampicillin/Sulbactam 3,000 MG in 0.9 % Sodium Chloride Mini Bag 100 ML IVPB SCH (12:00)
[2019-05-22] MEDS: Ampicillin 2 GM in 0.9 % Sodium Chloride Mini Bag 100 ML IVPB SCH ×2 (13:42→18:18)
[2019-05-22] MEDS ORDERED: *HR* Heparin 5,000 UNIT/ML VIAL SQ SCH (14:00)
--- NOTE | 2019-05-22 15:59 | Oncology Inp Progress Note ---
Date of Encounter: 05/22/19 Time of Encounter: 16:30 (1) Lymphadenopathy Current Visit: Yes Status: Acute Assessment and plan: During a lung cancer screening evaluation, he was found to have adenopathy involving the left lower neck, superior mediastinum, retroperitoneum, and mesentery. PET/CT revealed these jacinto to have focal hypermetabolic activity was involving the left brachiocephalic vein. Multiple hypermetabolic hepatic lesions and vertebral body lesions, compatible with disease involvement at the sites. There was also a lesion involving the pancreas I personally reviewed imaging. Left lower cervical/supraclavicular adenopathy is deep and difficult to palpate. Although lymphoma is a concern, a metastatic pancreas carcinoma or CUP is also a consideration. I think proceeding CT guided biopsy of the left SC/low cervical lymph node by IR would be the next logical step now that his mental status and hyponatremia have improved. If this is nondiagnostic or a lymphoma is identified but difficult to differentiate, we can proceed with excisional biopsy. (2) Encephalopathy Current Visit: Yes Status: Acute Assessment and plan: He presented with severe, symptomatic hyponatremia and receiving 3% saline. He is currently sedated on WA protocol as he is an alcoholic averaging 4-8 beers nightly. On exam, he is sedated. (3) Hyponatremia Current Visit: Yes Status: Acute Assessment and plan: Indices c/w SIADH. Improving after course of 3% saline. Transitioned to fluid restriction. Nephrology assisting. Oncology: Subj Interval history: More alert today and answer a few simple questions. Less sedated. No fever, chills per his . No new pain. Most history provided by his . Of note, patient had vtach arrest later this evening noted at time note completion. - Constitutional General appearance: cooperative, no acute distress, thin - Head Head exam: Present: atraumatic, normal inspection, normocephalic - Eye Eye exam: Present: normal appearance, conjuntiva pink, sclera anicteric - ENT ENT exam: Present: mucous membranes moist, normal oropharynx - Neck Neck exam: Present: full ROM, normal inspection - Respiratory Respiratory exam: Present: decreased breath sounds - Cardiovascular Cardiovascular exam: Present: tachycardia - GI/Abdominal GI/Abdominal exam: Present: normal bowel sounds, soft - Neurological Exam Neurological exam: Present: alert, altered Oncology: Obj Data - Labs CBC & Chem 7: 05/22/19 18:52 05/22/19 18:52 Labs: Hepatitis B and hepatitis C and HIV serologies are negative. LDH is elevated to 72 Consult Discharge Plan - Plan Referrals: NONE,PCP [Primary Care Provider] - Inpatient Charges Provider: Dr. Casper Okeefe Follow up - Inpatient: [id number]
[2019-05-22] MEDS ORDERED: Isovue-370 500 ML BOTTLE IVP ONE (18:44)
[2019-05-22] MEDS ORDERED: FentaNYL (PF) 1,000 MCG in 0.9 % Sodium Chloride 80 ML IVC SCH (18:45)
[2019-05-22] MEDS ORDERED: Artificial Tears SOLN 15 ML BOTTLE BOTH EYES PRN (18:47)
--- NOTE | 2019-05-22 18:57 | Event Note ---
Date of Encounter: 05/22/19 Time of Encounter: 18:48 At approx 0630 PM a CODE BLUE was called from 2a72. The pt had recently been moved over after stabilization in the ICU. The nurse reportedly found him unresponsive. CPR was initiated and epinephrine was given while he was hooked up to the monitor. ROSC was achieved. The pt then showed V tach on the monitor, however, he converted out of it into sinus rhythm. The pt was intubated by RT with 20 mg of etomidate and 5 mg of versed with a 7.5 ET tube, see their note for details. STAT labs ordered - troponin, lactic acid, CBC and CMP pending. Fentnayl and versed drips started. Pt moved back to ICU3. Vent settings put to TV 500, FiO2 of 100% and PEEP 5. STAT XR chest pending. STAT CT head and CTA chest pending. R/O pulmonary embolism. Dr Toure will place CVC overnight. Dr Sykes supervised and assisted with this pt and was apart of all critical portions of patient care.
[2019-05-22 18:59] VITALS: BP 158/82
[2019-05-22] MEDS ORDERED: Pantoprazole 40 MG VIAL IVP SCH (19:00)
[2019-05-22 19:08] LABS: Basophils % 0.4 %; Eosinophils # 0.1 K/mcL (0.0-0.6); Eosinophils % 0.7 %; Hematocrit 39.5 % (37.5-50.1); Lymphocytes # 1.9 K/mcL (0.6-4.6); Lymphocytes % 20.6 %; Mean Corpuscular HGB Conc 33.7 g/dL (31.6-35.5); Mean Corpuscular Hemoglobin 30.4 pg (28.0-33.3); Mean Corpuscular Volume 90.4 fL (83.0-100.0); Mean Platelet Volume 8.7 fL (9.4-12.4); Monocytes # 1.1 K/mcL (0.0-1.3); Monocytes % 11.7 %; Neutrophils # 5.9 K/mcL (1.6-8.9); Platelet Count 180 K/mcL (140-400); Red Blood Count 4.37 M/mcL (4.19-5.50); Segmented Neutrophils % 65.6 %
[2019-05-22 19:10] LABS: Hemoglobin 13.3 g/dL (12.9-16.9)
[2019-05-22 19:11] LABS: VBG HCO3 16 mEq/L (21-27); VBG PCO2 27 mmHg (41-51); VBG PH 7.39 pH Units (7.32-7.42); VBG PO2 198 mmHg (25-50)
--- NOTE | 2019-05-22 19:11 | Nephrology Progress Note ---
Date of Encounter: 05/22/19 Time of Encounter: 12:00 - Assessment and Plan (1) Hyponatremia Current Visit: Yes Status: Acute Sodium noted at 126, stable off hypertonic saline . 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 will monitor Continue fluid restriction if possible Continue salt tabs (2) Delirium due to general medical condition Current Visit: Yes Status: Acute (3) Lymphoma Current Visit: Yes Status: Acute Qualifiers: Lymphoma type: unspecified type Lymphoma site: multiple regions Qualified Code(s): C85.98 - Non-Hodgkin lymphoma, unspecified, lymph nodes of multiple sites (4) Pleural effusion Current Visit: Yes Status: Acute Subjective Principal diagnosis: Encephalopathy, hyponatremia Interval history: Pt seen and examined resting comfortably but easily awaken, still not able to converse much but per nurse less agitated overall. Objective - Vital Signs Vital signs: Vital Signs Temp Pulse Resp BP Pulse Ox 05/22/19 18:50 33 158/82 95 05/22/19 16:34 97.8 F 05/22/19 16:00 124 24 108/58 95 05/22/19 14:00 121 24 120/104 95 05/22/19 12:11 97.8 F 05/22/19 12:00 115 24 119/81 95 05/22/19 10:00 115 24 124/86 95 05/22/19 08:53 97.1 F L 05/22/19 08:00 100 26 121/88 99 05/22/19 07:00 98 26 106/73 99 05/22/19 06:00 124 32 114/99 99 05/22/19 05:00 117 26 126/85 100 05/22/19 04:36 98.1 F 05/22/19 04:00 127 31 139/82 99 05/22/19 03:00 120 29 124/92 99 05/22/19 02:00 116 28 143/65 100 05/22/19 01:00 118 24 121/81 100 05/22/19 00:26 98.2 F 05/22/19 00:00 121 30 129/87 100 05/21/19 23:00 122 22 129/90 100 05/21/19 22:00 122 28 124/92 100 05/21/19 21:00 121 30 126/76 100 05/21/19 20:00 121 23 125/84 98 Intake and Output 05/22/19 05/22/19 05/22/19 07:59 15:59 23:59 Intake Total 200 / 300 100 / 300 Output Total 500 / 875 250 / 875 125 / 875 Balance -300 / -575 -150 / -575 -125 / -575 Intake: IV Fluids 200 / 300 100 / 300 Ampicillin 2 GM In 0.9 % Sodium 100 / 100 Chloride (Mini-Bag +) 100 ML @ 200 mls/hr IVPB Q6HR [facility] Rx#: [id number] Unasyn 3,000 MG In 0.9 % Sodium 200 / 200 Chloride (Mini-Bag +) 100 ML @ 200 mls/hr IVPB Q6HR [facility] Rx#: [id number] Output: Catheter 500 / 875 250 / 875 125 / 875 Other: Stool Size Moderate Stool Consistency loose liquid Stool Color Green # Bowel Movement Diapers 1 Weight 46.9 kg Patient Weight 05/22/19 23:59 Weight 46.9 kg - Lab 05/22/19 06:50 05/22/19 06:50 Most recent lab results 05/22/19 06:50 Calcium 9.9 Consult Discharge Plan - Plan Referrals: NONE,PCP [Primary Care Provider] -
[2019-05-22] MEDS ORDERED: *HR* Heparin 5,000 UNIT/ML VIAL IVP PRN ×2 (19:22)
[2019-05-22] MEDS ORDERED: *HR* Heparin 5,000 UNIT/ML VIAL IVP ONE (19:22)
[2019-05-22] MEDS ORDERED: Heparin 25,000 UNIT/250 ML D5W 25,000 UNIT/250 ML IV.SOLN IVC SCH (19:30)
[2019-05-22 19:33] LABS: Alanine Aminotransferase 28 Units/L (7-52); Albumin 3.1 g/dL (3.5-5.7); Albumin/Globulin Ratio 1.2 (1.1-2.2); Alkaline Phosphatase 130 Units/L (34-104); Aspartate Amino Transferase 71 Units/L (13-39); BUN/Creatinine Ratio 11 (6-26); Blood Urea Nitrogen 5 mg/dL (8-23); Calcium 10.2 mg/dL (8.6-10.3); Carbon Dioxide 19 mEq/L (23-29); Chloride 94 mEq/L (98-107); Globulin 2.6 g/dL (2.4-3.5); Glucose 88 mg/dL (70-105); Osmolality,Calculated 261 (280-300); Sodium 127 mEq/L (136-145); Total Protein 5.7 g/dL (6.4-8.9); Troponin I 2.43 ng/mL (< 0.04); eGFR For African Americans > 60 (> 60); eGFR For Non-African Americans > 60 (> 60)
[2019-05-22] MEDS ORDERED: *HR* Etomidate 20 MG/10 ML AMPUL IVP ONE (19:39)
[2019-05-22] MEDS ORDERED: *HR* Midazolam HCl 5 MG/5 ML VIAL IVP ONE (19:39)
--- NOTE | 2019-05-22 19:51 | Death Note ---
<Christ Bauer S - Last Filed: 05/22/19 19:43> Discharge Sum: Summary - Date and Time Date of admission: 05/18/19 06:29 Date of : 05/22/19 Time of : 19:40 - Summary Details: Mr. Perez is a 64 year old male admitted on 05/18/19 with a past medical history of coronary artery disease, dementia, hypertension, BPH, severe alcholism, and recently diagnosed metastatic lymphoma who presented to the emergency department for increased confusion over baseline dementia. Per ED note family states the patient has been increasingly confused over the last 2-3 days. PET scan as an outpt results and the records the patient appears to have metastatic disease that is widespread including involvement in the left adrenal gland. CT of the head and was without acute intracranial abnormality, labs demonstrated profound hyponatremia of 104. Nephrology was consulted who recommended immediately starting hypertonic saline and the patient admitted to the ICU. Over the next few he had a slow correction of his sodium. The pt had a right femoral CVC placed. Chest CT outpt on 04/28: Multiple lung abnormalities as well as lymphadenopathy in the lower neck, mediastinum, retrocrural and upper abdomen. The findings are concerning for a systemic process. Lymphoma is raised. The pt was on CIWA protocol and had seizure precautions in place. He received 3 days of unasyn for UTI with urine cx positive on 05/18 for enterococcus faecalis. His sodium ultimately corrected to 124. Heme-onc was consulted and they recommended inpatient BMB for suspected metastatic lymphoma. HIV and hepatitis panels negative. The pt was moved to the floor but quickly became unstable. At approx 0630 PM a CODE BLUE was called from 2a. The pt had recently been moved over after stabilization in the ICU. The nurse reportedly found him unresponsive. CPR was initiated and epinephrine was given while he was hooked up to the monitor. ROSC was achieved. The pt then showed V tach on the monitor, however, he converted out of it into sinus rhythm. The pt was intubated by RT with 20 mg of etomidate and 5 mg of versed with a 7.5 ET tube, see their note for details. STAT labs ordered - troponin, lactic acid, CBC and CMP pending. Fentnayl and versed drips started. Pt moved back to ICU3. Vent settings put to TV 500, FiO2 of 100% and PEEP 5. STAT XR chest pending. STAT CT head and CTA chest pending. R/O pulmonary embolism. Dr Toure will place CVC overnight. Dr Sykes supervised and assisted with this pt and was apart of all critical portions of patient care. The pt was moved back to the icu and subsequently coded again. DAVON BLUE activated and Mony Wade, and Selina present. The pt had 10 total rounds of epineprhine, was shocked 3 times, had 2g of magnesium pushed, 2 amps of bicarb pushed. TPA was started for suspected clot. Labs reveiwed to be 2.43 troponin with a lactic acid of 3. Time of : [address] Ayala notified of time of and of the sequence of events. Family present at bedside and asked for compressions to be stopped. - Additional Data Confirmation of as documented by pronouncing clinician: no pulse, no respirations, no heart sounds, pupils fixed and dilated Family: at bedside Attending/PCP notified?: Yes Attending physician: Randi Latif MD Was code activated?: Yes Autopsy requested?: No license registration examiner notified?: No Organ bank notified?: No Advance directives: No Hospice patient?: No Discharge Sum: Diag - PCOD Probable Cause of : Cardiac arrest Discharge Sum: Prov - Provider Primary care physician: PCP NONE Admitting clinician: Coco Ordonez Attending physician on admission: Coco Ordonez Consults: 05/18/19 05:56 Consult to Nephrology [CONS] Stat Consulting Provider: [facility]/LINDA/TIMOTHY/KATHERIN Reason for Consult: Hyponatremia Time Notified: 05:57 Call Completed: Yes 05/20/19 18:25 Consult to Oncology [CONS] Routine Consulting Provider: [facility] Reason for Consult: Recent diagnosis of Hodgkin's lymphoma with metastasis Call Completed: No Pronouncing clinician: Christ Bauer <Garrett Ayala - Last Filed: 05/23/19 06:39> Discharge Sum: Summary - Date and Time Date of admission: 05/18/19 06:29 - Additional Data Attending physician: Randi Latif MD Discharge Sum: Prov - Provider Primary care physician: PCP NONE Consults: 05/18/19 05:56 Consult to Nephrology [CONS] Stat Consulting Provider: [facility]/LINDA/TIMOTHY/KATHERIN Reason for Consult: Hyponatremia Time Notified: 05:57 Call Completed: Yes 05/20/19 18:25 Consult to Oncology [CONS] Routine Consulting Provider: [facility] Reason for Consult: Recent diagnosis of Hodgkin's lymphoma with metastasis Call Completed: No - Attending Attestation I examined this patient and my medical decision-making was reviewed with the Resident Physician. I agree with the documented findings, disposition and treatment plan as described except to the extent set forth below. We independently had [id number] contact with the patient I was not physically present for the cardiac arrest the patient had been transferred out of the ICU by this point. I did discuss the case with the hospitalist and the resident during cardiac arrest as outlined in the note. I was not made aware of the decision to administer tPA, howver, acute pulmonary embolus was in the differential for his decompensation along with possible cardiac ischemia given rapidity of sequence of events.
[2019-05-22] MEDS ORDERED: Artificial Tears SOLN 15 ML BOTTLE BOTH EYES SCH (20:00)
--- NOTE | 2019-05-22 20:03 | Event Note ---
Date of Encounter: 05/22/19 Time of Encounter: 19:09 I responded to CODE BLUE called on this patient shortly after 7 PM. Upon arrival to the bedside, patient was already intubated and was receiving chest compressions. He was in PEA. We continued resuscitative efforts following ACLS protocol. He received 2 rounds of epinephrine and 1 amp of sodium bicarbonate with return of spontaneous circulation. However, ROSC was very short-lived, and then he again became pulseless and we resumed resuscitation again thereafter. During the code and resuscitative procedure, he received several rounds of epinephrine, a total of 2 Amps of sodium bicarbonate, a magnesium bolus, amiodarone bolus followed by drip, and then later TPA (for concerns of possible massive pulmonary embolus). He did also receive defibrillation as well for concerns of ventricular fibrillation on the monitor during pulse check. After a prolonged resuscitative effort, his was able to come to the bedside to witness the event and see her . At that point, she requested that we stop all resuscitation attempts and to allow him to pass peacefully. At that point, we honored her wishes and terminated all resuscitative efforts. At that point, he was pulseless and apneic with only rare agonal respirations. Time of was called at 19:40 on 05/22/2019.
[2019-05-22] MEDS ORDERED: Chlorhexidine Rinse 15 ML MOUTHWASH MM SCH (21:00)
[2019-05-23] MEDS ORDERED: Ampicillin 2 GM in 0.9 % Sodium Chloride Mini Bag 100 ML IVPB SCH
== END 2019-05-22 19:40 | disposition expired | DRG 643 ==
LOC: EMEROOARM 02:09 → ICNU 06:29 → 2ANU 05-22 18:01 → ICNU 05-22 19:24
PROVIDERS: ADMIT Internal Medicine; ATTEND Internal Medicine